=== PATIENT | female | born 1930 | race Caucasian/White ===

== ENCOUNTER 2018-01-04 18:42 | Emergency (ER) | payer OTHER ==
--- OUTSIDE RECORDS SUMMARY | 2018-01-04 18:44 | XMS REPORT ---
:1930 Author Organization eClinicalWorks Care Team Providers Name Role Phone Felicity Hager Provider Role Unavailable Allergies, Adverse Reactions, Alerts Substance Reaction Event Type Sulfa Info Not Available Drug Allergy Levaquin Info Not Available Drug Allergy Fosamax Info Not Available Drug Allergy Erythromycin Info Not Available Drug Allergy Problems Problem Type Condition Code Onset Dates Condition Status Problem Difficulty sleeping G47.9 Active Problem retirement current use of Z79.01 Active anticoagulant Problem Encounter for therapeutic drug Z51.81 Active level monitoring Problem Constipation K59.00 Active Problem DVT (deep venous thrombosis) I82.409 Active Problem Calculus of kidney with calculus of N20.2 Active ureter Problem History of TIA (transient ischemic Z86.73 Active attack) Problem Memory loss R41.3 Active Problem Transient ischemic attack G45.9 Active Problem Chronic UTI N39.0 Active Assessment Urinary tract infection, site not N39.0 Active specified Problem Hypertension, unspecified type I10 Active Assessment Hematuria, unspecified R31.9 Active Problem Chronic constipation K59.09 Active Problem Depression, unspecified depression F32.9 Active type Problem Deep vein thrombosis (DVT) of left I82.402 Active lower extremity, unspecified chronicity, unspecified vein Problem Hyperlipidemia, unspecified E78.5 Active hyperlipidemia type Problem Prediabetes R73.03 Active Problem Diverticulosis large intestine w/o K57.31 Active perforation or abscess w/bleeding Medications Medication Code Code Instructions Start End Status Dosage System Date Date Citalopram [facility] 15148641603 10 MG Orally Active 1 tablet Hydrobromide Once a day Imodium A-D ND 53939321986 2 MG Orally Active 1 tablet as Four times a needed day Nystatin [facility] 63663278824 001064 UNIT/GM Active 1 application Externally to affected Twice a day area Nexabiotic [facility] 60477192246 - Orally Active not defined Diltiazem HCl ND 26748928342 120 MG Orally Active 1 capsule ER Once a day Xarelto [facility] 89217429706 20 MG Active TAKE 1 TABLET BY MOUTH EVERY EVENING Ultram [facility] 91270217317 50 MG Orally Active 1 tablet as every 6 hrs needed Losartan [facility] 53550054136 50 MG Orally Active 1 tablet Potassium Once a day Restasis [facility] 99907513948 0.05 % Active 1 drop into Ophthalmic affected eye Twice a day Fenofibrate [facility] 95063905186 145 MG Orally Active 1 tablet with Once a day food Prilosec [facility] 75304380487 20 MG Orally Active 1 capsule Once a day Colestid [facility] 70429714572 1 GM Orally Active 2 tablets Once a day Macrobid [facility] 67645467805 100 mg Orally December Active 1 capsule every 12 hrs , with food 2017 2017 MiraLax [facility] 20569247628 - Orally Once a Active 1 packet day mixed with 8 ounces of fluid Combigan [facility] 36961898429 0.2-0.5 % Active 1 drop into Ophthalmic affected eye Twice a day Celexa [facility] 38676207295 20 MG Orally Active 1 tablet Once a day Gabapentin [facility] 41750233339 300 MG Orally Active 1 capsule in Three times a am 1 capsule day at noon and 2 capsules at bedtime Linzess [facility] 75597203817 145 MCG Orally Active 1 capsule Once a day Latanoprost [facility] 54615265769 0.005 % Active 1 drop into Ophthalmic Once affected eye a day in the evening Colace [facility] 44682501505 100 MG Active 1 CAPSULE ORALLY UP TO 3X PER DAY Results Name Result Date Reference Range Unit Abnormality Flag PVR ----PVR 0 [id number] Summary Purpose eClinicalWorks Submission
[2018-01-04 19:42] LABS: Absolute Lymphocytes (CBC) 0.7 K/uL (0.7-4.9); Absolute Monocytes 0.8 K/uL (0.1-1.3); Absolute Neutrophil 5.1 K/uL (1.8-8.0); Basophils % 0.4 % (0-1.3); Eosinophils % 8.3 % (0-4.4); Hematocrit 37.3 % (36.0-45.0); Lymphocytes % 10.1 % (15.3-44.8); MCV 95.9 fL (80-100); MPV 8.2 fL (7.6-11.3); Monocytes % 10.8 % (3.3-12.3); RBC Red Blood Cell Count 3.88 M/uL (3.86-4.86)
[2018-01-04 19:48] LABS: Potassium 3.8 mEq/L (3.6-5.0)
[2018-01-04] MEDS ORDERED: ACETAMINOPHEN 325 MG TABLET ONE (19:54)
[2018-01-04] MEDS ORDERED: DOXYCYCLINE 100 MG CAP PO ONE (19:54)
[2018-01-04] MEDS ORDERED: CEFTRIAXONE/SWI 1gm 1 GM/10 ML SYR ONE (19:55)
[2018-01-04 20:01] LABS: Albumin 3.6 g/dL (3.2-5.5); Bilirubin Total 0.8 mg/dL (0.3-1.2); Protein, Total 6.6 g/dL (6.0-8.3)
--- NOTE | 2018-01-04 20:34 | EDPHYS ---
Physician Documentation [facility] Name: Adamaris Beaver Age: 87 yrs Sex: Female : 1930 Arrival Date: 01/04/2018 Time: 18:44 Bed 6 Private MD: Genia Chaudhary ED Physician Berlin Bright HPI: 01/04 18:57 This 87 yrs old Female presents to ER via Wheelchair with complaints of Leg rh1 Pain. 18:57 The patient presents with an abrasion, pain, erythema. The complaints affect the medial rh1 aspect of right calf and right ankle. Context: The problem was sustained at home, resulted from scratch by dog, the patient can fully bear weight, the patient is able to ambulate, Problem is a result from a previous injury: No. Onset: The symptoms/episode began/occurred 1 week(s) ago, and became worse 2 day(s) ago. Modifying factors: The symptoms are alleviated by nothing. the symptoms are aggravated by nothing. Associated signs and symptoms: Pertinent positives: warmth, Pertinent negatives calf tenderness, fever, numbness, swelling, tingling, vomiting, weakness. Treatment prior to arrival includes: no previous treatment. Severity of symptoms: At their worst the symptoms were moderate, in the emergency department the symptoms are unchanged. The patient has not experienced similar symptoms in the past. The patient has been recently seen at an urgent care, today, for similar complaints, and was sent to the [facility] Emergency Department for further evaluation. PT. reports she was scratched by a dog approx. 1 week ago at right medial lower leg, and approx. 1 cm abrasion had been healing well until 2 days ago. She began with redness and increased tenderness at site. Denies any fever, vomiting, swelling. She is currently being treated for a UTI, received injection of gentamycin in PCP office, and taking macrobid now.. Historical: - Allergies: 18:50 Bactrim; la1 18:50 Demerol; la1 18:50 Erythromycin; la1 18:50 Fosamax; la1 18:50 Levaquin; la1 - Home Meds: 19:44 Centrum Silver Women Oral daily [Active]; citalopram 20 mg tab 1 tab once daily tl2 [Active]; Colace Oral [Active]; Colestid Oral 2 times per day [Active]; diltiazem HCl 120 mg Oral cpER 1 cap once daily [Active]; fenofibrate 145 Oral once daily [Active]; gabapentin 300 mg Oral cap four times a day [Active]; Linzess 145 mcg Oral cap 1 cap once daily [Active]; losartan 50 mg Oral tab 1 tab once daily [Active]; Ocuvel Oral daily [Active]; omeprazole 20 mg Oral cpDR 1 cap once daily [Active]; tramadol 200 mg Oral Tb24 1 tab once daily [Active]; Xarelto 20 mg Oral tab 1 tab once daily [Active]; - PMHx: 18:50 Depression; Diverticulitis; Gastric Reflux; High Cholesterol; Hypertension; Kidney la1 stones; neuropathy; TIA; - Immunization history:: Adult Immunizations up to date. - Social history:: Smoking status: Patient/guardian denies using tobacco. ROS: 18:57 Constitutional: Negative for fever, chills rh1 18:57 Cardiovascular: Negative for chest pain, palpitations. 18:57 Respiratory: Negative for shortness of breath. 18:57 Abdomen/GI: Negative for abdominal pain, nausea and vomiting. 18:57 Skin: Positive for abrasion(s), cellulitis. 18:57 Neuro: Negative for altered mental status, dizziness, headache, numbness, tingling, weakness. 18:57 All other systems are negative. 18:57 MS/extremity: Positive for erythema, pain, tenderness, Negative for decreased range of rh1 motion, swelling. 18:57 Back: Negative for decreased range of motion, pain at rest, pain with movement, rh1 radiated pain. 18:57 : Negative for urinary symptoms, small amounts. Exam: 18:57 Constitutional: This is a well developed, well nourished patient who is awake, alert, rh1 and in no acute distress. Head/Face: Normocephalic, atraumatic. Neck: Trachea midline, and no cervical lymphadenopathy. Supple, full range of motion without nuchal rigidity. No Meningismus. Cardiovascular: Regular rate and rhythm with a normal S1 and S2. No gallops, murmurs, or rubs. No JVD. No pulse deficits. Respiratory: Lungs have equal breath sounds bilaterally, clear to auscultation. No rales, rhonchi or wheezes noted. No increased work of breathing. Abdomen/GI: Soft, non-tender, with normal bowel sounds. No distension. No guarding or rebound. No evidence of tenderness throughout. Back: No spinal tenderness. No costovertebral tenderness. Full range of motion. 18:57 Musculoskeletal/extremity: Calves: are non-tender, have equal circumference. 18:57 Skin: abscess, not appreciated, cellulitis, that is mild, well demarcated, on the right ankle and medial aspect of right calf, approx. 2 - 3 cm surrounding more medial/inferior aspect of abrasion, approx. 1 cm at more superior/lateral abrasion; patchy erythema at anterior lower leg, adjacent to wound; negative Nikolsky sign, induration, is not appreciated, injury, abrasion(s), very small abrasion noted, 1 cm(s), of the medial aspect of right calf. 18:57 Neuro: Orientation: is normal, to person, place \T\ time. Mentation: is normal, lucid, able to follow commands, Motor: is normal, moves all fours, strength is 5/5 in all extremities, Sensation: is normal, no obvious gross deficits, numbness, is not appreciated, tingling, is not appreciated, Gait: is steady, at a normal pace, without difficulty. Vital Signs: 18:50 BP 140 / 68; Pulse 70; Resp 16; Temp 98.4(TE); Pulse Ox 97% on R/A; Weight 72.57 kg la1 (R); Height 5 ft. 4 in. (162.56 cm); 19:16 BP 151 / 75; Pulse 71; Resp 20; Pulse Ox 94% on R/A; tl2 20:18 BP 145 / 67; Pulse 71; Resp 18; Pulse Ox 93% on R/A; tl2 20:56 BP 145 / 75; Pulse 71; Resp 18; Pulse Ox 92% on R/A; tl2 18:50 Body Mass Index 27.46 (72.57 kg, 162.56 cm) la1 MDM: 18:57 Patient medically screened. rh1 20:34 Data reviewed: vital signs, nurses notes, lab test result(s), and as a result, I will rh1 discharge patient. Data interpreted: Pulse oximetry: on room air is 93 %. Interpretation: acceptable. Counseling: I had a detailed discussion with the patient and/or guardian regarding: the historical points, exam findings, and any diagnostic results supporting the discharge/admit diagnosis, lab results, the need for outpatient follow up, a family practitioner, to return to the emergency department if symptoms worsen or persist or if there are any questions or concerns that arise at home. 01/04 19:07 Order name: CBC with Diff 1 01/04 19:07 Order name: CMP rh1 01/04 19:07 Order name: Lactate rh 01/04 19:07 Order name: Procalcitonin [facility] 01/04 19:49 Order name: CBC with Automated Diff; Complete Time: 19:56 EDMS 01/04 19:49 Order name: Comprehensive Metabolic Panel; Complete Time: 20:12 EDMS 01/04 19:17 Order name: IV Start; Complete Time: 19:23 1 01/04 20:03 Order name: Lactate; Complete Time: 20:12 EDMS 01/04 20:29 Order name: Procalcitonin; Complete Time: 20:31 EDMS Administered Medications: 19:42 Drug: Tylenol 650 mg Route: PO; tl2 21:10 Follow up: Response: No adverse reaction tl2 19:42 Drug: Rocephin - (cefTRIAXone) 1 grams Route: IVPB; Infused Over: 30 mins; Site: right tl2 antecubital; 21:10 Follow up: IV Status: Completed infusion tl2 19:42 Drug: Doxycycline 100 mg Route: PO; tl2 21:10 Follow up: Response: No adverse reaction tl2 Disposition: 01/04/18 20:34 Discharged to Home. Impression: Cellulitis of right lower limb, Abrasion, right lower leg. - Condition is Stable. - Discharge Instructions: Abrasion, Cellulitis. - Prescriptions for Keflex 500 mg Oral Capsule - take 1 capsule by ORAL route every 12 hours for 10 days; 20 capsule. Doxycycline Hyclate 100 mg Oral Tablet - take 1 tablet by ORAL route every 12 hours; 20 tablet. - Medication Reconciliation Form, Thank You Letter, Antibiotic Education, Prescription Opioid Use form. - Follow up: Genia Chaudhary; When: 1 - 2 days; Reason: Recheck today's complaints, Continuance of care, Re-evaluation by your physician. Follow up: Emergency Department; When: As needed; Reason: Fever > 102 F, If symptoms return, Trouble breathing, Worsening of condition. - Problem is new. - Symptoms have improved. Addendum: 01/08/2018 14:33 Co-signature as Attending Physician, Berlin Bright MD. r n Signatures: Dispatcher [employer] EDBerlin Johns MD MD rn Attema, Nasim RN RN la1 Norma Plascencia, CANDY ATTENDANT CANDY ATTENDANT rh1 Kelly Valladares RN RN tl2 Corrections: (The following items were deleted from the chart) 01/04 19:33 18:57 The complaints affect the medial aspect of right calf and right ankle, rh1 rh1 19:34 18:57 PT. reports she was scratched by a dog approx. 1 week ago at right medial lower rh1 leg, and approx. 1 cm abrasion had been healing well until 2 days ago. She began with redness and increased tenderness at site. Denies any fever, vomiting, swelling.. rh1 19:34 18:57 Skin: abscess, not appreciated, cellulitis, that is mild, well demarcated, on the rh1 right ankle and medial aspect of right calf, approx. 2 - 3 cm surrounding more medial/inferior aspect of abrasion, approx. 1 cm at more superior/lateral abrasion; patchy erythema at anterior lower leg, adjacent to wound, induration, is not appreciated, injury, abrasion(s), very small abrasion noted, 1 cm(s), of the medial aspect of right calf, rh1 19:35 18:57 Abdomen/GI: Negative for nausea and vomiting, rh1 rh1 19:35 18:57 MS/extremity: Positive for erythema, pain, tenderness, Negative for decreased rh1 range of motion, swelling, rh1
--- NOTE | 2018-01-04 20:34 | ER ---
Nurse's Notes [facility] Name: Adamaris Beaver Age: 87 yrs Sex: Female : 1930 Arrival Date: 01/04/2018 Time: 18:44 Bed 6 Private MD: Genia Chaudhary Diagnosis: Cellulitis of right lower limb;Abrasion, right lower leg Presentation: 01/04 18:49 Presenting complaint: Patient states: I have an area on infection on my right lower la1 leg. My doctor told me I may need IV abx. Transition of care: patient was not received from another setting of care. Onset of symptoms was January 04, 2018. Care prior to arrival: None. 18:49 Method Of Arrival: Wheelchair la1 18:49 Acuity: VINI 3 la1 Historical: - Allergies: 18:50 Bactrim; la1 18:50 Demerol; la1 18:50 Erythromycin; la1 18:50 Fosamax; la1 18:50 Levaquin; la1 - Home Meds: 19:44 Centrum Silver Women Oral daily [Active]; citalopram 20 mg tab 1 tab once daily tl2 [Active]; Colace Oral [Active]; Colestid Oral 2 times per day [Active]; diltiazem HCl 120 mg Oral cpER 1 cap once daily [Active]; fenofibrate 145 Oral once daily [Active]; gabapentin 300 mg Oral cap four times a day [Active]; Linzess 145 mcg Oral cap 1 cap once daily [Active]; losartan 50 mg Oral tab 1 tab once daily [Active]; Ocuvel Oral daily [Active]; omeprazole 20 mg Oral cpDR 1 cap once daily [Active]; tramadol 200 mg Oral Tb24 1 tab once daily [Active]; Xarelto 20 mg Oral tab 1 tab once daily [Active]; - PMHx: 18:50 Depression; Diverticulitis; Gastric Reflux; High Cholesterol; Hypertension; Kidney la1 stones; neuropathy; TIA; - Immunization history:: Adult Immunizations up to date. - Social history:: Smoking status: Patient/guardian denies using tobacco. Screenin:16 Abuse screen: Denies threats or abuse. Nutritional screening: No deficits noted. tl2 Tuberculosis screening: No symptoms or risk factors identified. Fall Risk Fall in past 12 months (25 points). IV access (20 points). Assessment: 19:16 General: Appears in no apparent distress. comfortable, Behavior is calm, cooperative, tl2 appropriate for age. Pain: Complains of pain in right ankle. Neuro: Level of Consciousness is awake, alert, obeys commands, Oriented to person, place, time, situation. Cardiovascular: Denies chest pain. Respiratory: Airway is patent Respiratory effort is even, unlabored, Respiratory pattern is regular, symmetrical. GI: No signs and/or symptoms were reported involving the gastrointestinal system. : No signs and/or symptoms were reported regarding the genitourinary system. Denies burning with urination. Derm: Wound noted anterior aspect of right ankle Wound is scabbed, not draining. area of redness around wound. 20:19 Reassessment: Patient appears in no apparent distress at this time. Patient and/or tl2 family updated on plan of care and expected duration. Pain level reassessed. Patient is alert, oriented x 3, equal unlabored respirations, skin warm/dry/pink. 20:56 Reassessment: Patient appears in no apparent distress at this time. Patient and/or tl2 family updated on plan of care and expected duration. Pain level reassessed. Patient is alert, oriented x 3, equal unlabored respirations, skin warm/dry/pink. Pt and family verbalized understanding of discharge instructions, need for follow up, prescription usage and wound care. Vital Signs: 18:50 BP 140 / 68; Pulse 70; Resp 16; Temp 98.4(TE); Pulse Ox 97% on R/A; Weight 72.57 kg la1 (R); Height 5 ft. 4 in. (162.56 cm); 19:16 BP 151 / 75; Pulse 71; Resp 20; Pulse Ox 94% on R/A; tl2 20:18 BP 145 / 67; Pulse 71; Resp 18; Pulse Ox 93% on R/A; tl2 20:56 BP 145 / 75; Pulse 71; Resp 18; Pulse Ox 92% on R/A; tl2 18:50 Body Mass Index 27.46 (72.57 kg, 162.56 cm) la1 ED Course: 18:44 Patient arrived in ED. as 18:45 Genia Chaudhary MD is Private Physician. as 18:50 Triage completed. la1 18:51 Arm band placed on left wrist. la1 18:55 Norma Plascencia NP is PHCP. rh1 18:55 Berlin Bright MD is Attending Physician. rh1 19:16 Kelly Valladares, BRITT is Primary Nurse. tl2 19:16 Patient has correct armband on for positive identification. Bed in low position. Call tl2 light in reach. Side rails up X2. Adult w/ patient. 19:16 Inserted saline lock: 22 gauge in right antecubital area, using aseptic technique. tl2 Blood collected. 19:29 Procalcitonin Sent. tl2 19:29 Lactate Sent. tl2 19:30 CMP Sent. tl2 19:30 CBC with Diff Sent. tl2 20:34 Genia Chaudhary MD is Referral Physician. rh1 20:56 No provider procedures requiring assistance completed. IV discontinued, intact, tl2 bleeding controlled, No redness/swelling at site. Pressure dressing applied. Administered Medications: 19:42 Drug: Tylenol 650 mg Route: PO; tl2 21:10 Follow up: Response: No adverse reaction tl2 19:42 Drug: Rocephin - (cefTRIAXone) 1 grams Route: IVPB; Infused Over: 30 mins; Site: right tl2 antecubital; 21:10 Follow up: IV Status: Completed infusion tl2 19:42 Drug: Doxycycline 100 mg Route: PO; tl2 21:10 Follow up: Response: No adverse reaction tl2 Outcome: 20:34 Discharge ordered by . rh1 20:56 Discharged to home via wheelchair, with family. tl2 20:56 Condition: stable 20:56 Discharge instructions given to patient, family, Instructed on discharge instructions, follow up and referral plans. medication usage, wound care, Demonstrated understanding of instructions, follow-up care, medications, wound care. 21:11 Patient left the ED. tl2 Signatures: Heike Humphrey Lee, RN RN la1 Norma Plascencia NP E [employer] rh1 Kelly Valladares, BRITT RN tl2
[2018-01-04 21:17] VITALS: TEMP 98.4
[2018-01-04 21:20] VITALS: BP 145/75; O2SAT 92
== END 2018-01-04 21:11 | disposition home or self-care (01) ==
LOC: ER 18:42
DX: L03.115 Cellulitis of right lower limb (principal); S80.811A Abrasion, right lower leg, initial encounter; X58.XXXA Exposure to other specified factors, initial encounter; Y93.89 Activity, other specified; Y92.009 Unspecified place in unspecified non-institutional (private) residence as the place of occurrence of the external cause; Z88.3 Allergy status to other anti-infective agents; Z88.5 Allergy status to narcotic agent; Z88.8 Allergy status to other drugs, medicaments and biological substances; I10 Essential (primary) hypertension; E78.00 Pure hypercholesterolemia, unspecified; F32.9 Major depressive disorder, single episode, unspecified
CPT/HCPCS: 36415; 80053; 83605; 84145; 85025; 96365; 99284; J0696

== ENCOUNTER 2019-01-18 07:33 | Emergency (ER) | payer OTHER ==
--- OUTSIDE RECORDS SUMMARY | 2019-01-18 07:35 | XMS REPORT ---
:1930 Author Organization eClinicalWorks Care Team Providers Name Role Phone MadanFelicity cintron Provider Role Unavailable Allergies No Known Allergies Problems Problem Type Condition Code Onset Dates Condition Status Problem Difficulty sleeping G47.9 Active Problem director long term care current use of Z79.01 Active anticoagulant Problem Encounter for therapeutic drug Z51.81 Active level monitoring Problem Constipation K59.00 Active Problem DVT (deep venous thrombosis) I82.409 Active Problem Calculus of kidney with calculus of N20.2 Active ureter Problem History of TIA (transient ischemic Z86.73 Active attack) Problem Memory loss R41.3 Active Problem Transient ischemic attack G45.9 Active Problem Chronic UTI N39.0 Active Problem Hypertension, unspecified type I10 Active Problem Chronic constipation K59.09 Active Problem Depression, unspecified depression F32.9 Active type Problem Deep vein thrombosis (DVT) of left I82.402 Active lower extremity, unspecified chronicity, unspecified vein Problem Hyperlipidemia, unspecified E78.5 Active hyperlipidemia type Problem Prediabetes R73.03 Active Problem Diverticulosis large intestine w/o K57.31 Active perforation or abscess w/bleeding Medications No Known Medications Results No Known Results Summary Purpose eClinicalWorks Submission
--- OUTSIDE RECORDS SUMMARY | 2019-01-18 07:35 | XMS REPORT ---
[...] Status Problem Difficulty sleeping G47.9 Active Problem [facility] current use of Z79.01 Active anticoagulant Problem [...] End Status Dosage System Date Date Citalopram [facility] 79727882983 10 MG Orally Active 1 tablet Hydrobromide Once a day Imodium A-D ND 29110512871 2 MG Orally Active 1 tablet as Four times a needed day Nystatin [facility] 77848166338 109500 UNIT/GM Active 1 application Externally to affected Twice a day area Nexabiotic [facility] 11995808498 - Orally Active not defined Diltiazem HCl ND 33221141921 120 MG Orally Active 1 capsule ER Once a day Xarelto [facility] 34030110221 20 MG Active TAKE 1 TABLET BY MOUTH EVERY EVENING Ultram [facility] 92444557520 50 MG Orally Active 1 tablet as every 6 hrs needed Losartan [facility] 10710769470 50 MG Orally Active 1 tablet Potassium Once a day Restasis [facility] 99958191223 0.05 % Active 1 drop into Ophthalmic affected eye Twice a day Fenofibrate [facility] 81019771486 145 MG Orally Active 1 tablet with Once a day food Prilosec [facility] 42277523408 20 MG Orally Active 1 capsule Once a day Colestid [facility] 94897623733 1 GM Orally Active 2 tablets Once a day Macrobid [facility] 43642716917 100 mg Orally December Active 1 capsule every 12 hrs , with food 2017 2017 MiraLax [facility] 57278267045 - Orally Once a Active 1 packet day mixed with 8 ounces of fluid Combigan [facility] 25108600586 0.2-0.5 % Active 1 drop into Ophthalmic affected eye Twice a day Celexa [facility] 17802468758 20 MG Orally Active 1 tablet Once a day Gabapentin [facility] 08870191955 300 MG Orally Active 1 capsule in Three times a am 1 capsule day at noon and 2 capsules at bedtime Linzess [facility] 83381920888 145 MCG Orally Active 1 capsule Once a day Latanoprost [facility] 69561067658 0.005 % Active 1 drop into Ophthalmic Once affected eye a day in the evening Colace [facility] 30046086389 100 MG Active 1 CAPSULE ORALLY UP TO 3X PER DAY Results Name Result Date Reference Range Unit Abnormality Flag PVR ----PVR 0 [id number] Summary Purpose eClinicalWorks Submission
--- OUTSIDE RECORDS SUMMARY | 2019-01-18 07:35 | XMS REPORT ---
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 Problem Encounter for therapeutic drug Z51.81 Active level monitoring Problem Constipation K59.00 Active Problem DVT (deep venous thrombosis) I82.409 Active Problem Calculus of kidney with calculus of N20.2 Active ureter Problem History of TIA (transient ischemic Z86.73 Active attack) Problem Memory loss R41.3 Active Problem Transient ischemic attack G45.9 Active Problem Chronic UTI N39.0 Active Assessment Cellulitis of right lower leg L03.115 Active Problem Hypertension, unspecified type I10 Active [...] Start End Status Dosage System Date Date Centrum Silver [facility] [address]-25 Active not defined Ocuvite ND 0 Active not defined Xarelto [facility] 49460436219 20 MG Active TAKE 1 TABLET BY MOUTH EVERY EVENING Colace [facility] 86478906730 100 MG Active 1 CAPSULE ORALLY UP TO 3X PER DAY Losartan ND 90177210058 50 MG Orally Active 1 tablet Potassium Once a day Prilosec [facility] 67791060904 20 MG Orally Active 1 capsule Once a day Linzess [facility] 98501429159 145 MCG Orally Active 1 capsule Once a day MiraLax [facility] 76273314567 - Orally Once Active 1 packet a day mixed with 8 ounces of fluid OcuSoft Eye [facility] [address]-12 Active not defined Wash Milk of [facility] [address]-60 Active not defined Magnesia Celexa [facility] 70077256892 20 MG Orally Active 1 tablet Once a day Fenofibrate [facility] 16736398604 145 MG Orally Active 1 tablet with Once a day food Nystatin [facility] 70411129830 469623 UNIT/GM Active 1 application Externally to affected Twice a day area Latanoprost [facility] 67594460425 0.005 % Active 1 drop into Ophthalmic affected eye Once a day in the evening Restasis [facility] 97555218429 0.05 % Active 1 drop into Ophthalmic affected eye Twice a day Ultram [facility] 25795040160 50 MG Orally Active 1 tablet as every 6 hrs needed Colestid [facility] 19285604216 1 GM Orally Active 2 tablets Once a day Gabapentin [facility] 67049761068 300 MG Orally Active 1 capsule in Three times a am 1 capsule day at noon and 2 capsules at bedtime Combigan [facility] 98087973545 0.2-0.5 % Active 1 drop into Ophthalmic affected eye Twice a day Nexabiotic [facility] 06782308305 - Orally Active not defined Diltiazem HCl [facility] 38066956547 120 MG Orally Active 1 capsule ER Once a day Macrobid [facility] 40440530229 100 mg Orally December Active 1 capsule every 12 hrs , with food 2017 2017 Citalopram [facility] 25702485595 10 MG Orally Active 1 tablet Hydrobromide Once a day Imodium A-D [facility] 62664173479 2 MG Orally Active 1 tablet as Four times a needed day Results No Known Results Summary Purpose eClinicalWorks Submission
--- OUTSIDE RECORDS SUMMARY | 2019-01-18 07:35 | XMS REPORT ---
:1930 Author Organization [employer] Care Team Providers Name Role Phone Genia Chaudhary Provider Role Unavailable Allergies No Known Allergies Problems Problem Type Condition Code Onset Dates Condition Status Problem Difficulty sleeping G47.9 Active Problem USP current use of Z79.01 Active anticoagulant Problem [...]
--- OUTSIDE RECORDS SUMMARY | 2019-01-18 07:35 | XMS REPORT ---
:1930 Author Organization [employer] Care Team Providers Name Role Phone Madan Felicity Provider Role Unavailable Allergies, Adverse Reactions, Alerts Substance Reaction Event Type Sulfa Info Not Available Drug Allergy Levaquin Info Not Available Drug Allergy Fosamax Info Not Available Drug Allergy Erythromycin Info Not Available Drug Allergy Problems Problem Type Condition Code Onset Dates Condition Status Problem Difficulty sleeping G47.9 Active Problem half-way current use of Z79.01 Active anticoagulant Problem [...] Problem Hypertension, unspecified type I10 Active Assessment Incomplete bladder emptying R33.9 Active Problem Chronic constipation K59.09 Active Problem Depression, unspecified depression F32.9 Active type Problem Deep vein thrombosis (DVT) of left I82.402 Active lower extremity, unspecified chronicity, unspecified vein Problem Hyperlipidemia, unspecified E78.5 Active hyperlipidemia type Problem Prediabetes R73.03 Active Problem Diverticulosis large intestine w/o K57.31 Active perforation or abscess w/bleeding Medications Medication Code Code Instructions Start End Status Dosage System Date Date Prilosec [facility] 31481668682 20 MG Orally Active 1 capsule Once a day Diltiazem HCl ND 70252089354 120 MG Orally Active 1 capsule ER Once a day Fenofibrate ND 07953738923 145 MG Orally Active 1 tablet with Once a day food Citalopram ND 81130865568 10 MG Orally Active 1 tablet Hydrobromide Once a day Linzess ND 98350004300 145 MCG Orally Active 1 capsule Once a day Latanoprost ND 89335613867 0.005 % Active 1 drop into Ophthalmic Once affected eye a day in the evening Colestid [facility] 55260982307 1 GM Orally Active 2 tablets Once a day Celexa [facility] 47786550833 20 MG Orally Active 1 tablet Once a day Imodium A-D [facility] 70919631647 2 MG Orally Active 1 tablet as Four times a needed day Colace [facility] 84523319190 100 MG Active 1 CAPSULE ORALLY UP TO 3X PER DAY Xarelto [facility] 61213468898 20 MG Active TAKE 1 TABLET BY MOUTH EVERY EVENING Nexabiotic [facility] 12792319474 - Orally Active not defined Nystatin [facility] 80586232720 846881 UNIT/GM Active 1 application Externally to affected Twice a day area Gabapentin [facility] 47418394595 300 MG Orally Active 1 capsule in Three times a am 1 capsule day at noon and 2 capsules at bedtime Losartan [facility] 53150968509 50 MG Orally Active 1 tablet Potassium Once a day Combigan [facility] 23593039942 0.2-0.5 % Active 1 drop into Ophthalmic affected eye Twice a day Macrobid [facility] 77805418250 100 mg Orally December Active 1 capsule every 12 hrs , with food 2017 2017 Ultram [facility] 70350190520 50 MG Orally Active 1 tablet as every 6 hrs needed MiraLax [facility] 87347035733 - Orally Once a Active 1 packet day mixed with 8 ounces of fluid Restasis ND 97304517570 0.05 % Active 1 drop into Ophthalmic affected eye Twice a day Results Name Result Date Reference Range Unit Abnormality Flag URINALYSIS AUTO W/O SCOPE (58593) ----PARESH n/a 20180103 ----NIT n/a 20180103 ----PROTEIN n/a 20180103 ----pH n/a 20180103 ----GLUCOSE n/a 20180103 ----KETONES n/a 20180103 ----SPECIFIC GRAVITY n/a 20180103 ----BLO n/a 20180103 PVR ----PVR 20180103 Summary Purpose eClinicalWorks Submission
--- OUTSIDE RECORDS SUMMARY | 2019-01-18 07:36 | XMS REPORT ---
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 Problem [...] Start End Status Dosage System Date Date Restasis [facility] 40268942615 0.05 % Active 1 drop into Ophthalmic affected eye Twice a day Celexa [facility] 33281039193 20 MG Orally Active 1 tablet Once a day Centrum Silver [facility] [address]-89 Active not defined Colestid [facility] 09996162182 1 GM Orally Active 1 tablet Twice daily Xarelto [facility] 46375621902 20 MG Active TAKE 1 TABLET BY MOUTH EVERY EVENING Combigan [facility] 79341951181 0.2-0.5 % Active 1 drop into Ophthalmic affected eye Twice a day Losartan ND 09915475600 50 MG Orally Active 1 tablet Potassium Once a day Nexabiotic ND 94711834026 - Orally Active not defined Ocuvite NDC 0 Active not defined Ultram [facility] 85828866709 50 MG Orally Active 1 tablet as every 6 hrs needed Milk of [facility] [address]-23 Active not defined Magnesia MiraLax [facility] 64347729240 - Orally Once Active 1 packet a day mixed with 8 ounces of fluid Imodium A-D [facility] 88665272859 2 MG Orally Active 1 tablet as Four times a needed day Diltiazem HCl [facility] 71614086745 120 MG Orally Active 1 capsule ER Once a day Prilosec [facility] 00835579016 20 MG Orally Active 1 capsule Once a day Nystatin [facility] 41415159849 784917 UNIT/GM Active 1 application Externally to affected Twice a day area Linzess [facility] 98438300340 145 MCG Orally Active 1 capsule Once a day Gabapentin [facility] 82331666675 300 MG Orally Active 1 capsule in Three times a am 1 capsule day at noon and 2 capsules at bedtime Citalopram [facility] 75325312059 10 MG Orally Active 1 tablet Hydrobromide Once a day OcuSoft Eye [facility] [address]-31 Active not defined Wash Latanoprost [facility] 28675270299 0.005 % Active 1 drop into Ophthalmic affected eye Once a day in the evening Colace [facility] 70874163529 100 MG Active 1 CAPSULE ORALLY UP TO 3X PER DAY Fenofibrate [facility] 79398808558 145 MG Orally Active 1 tablet with Once a day food Results No Known Results Summary Purpose eClinicalWorks Submission
--- OUTSIDE RECORDS SUMMARY | 2019-01-18 07:36 | XMS REPORT ---
:1930 [facility] Team Providers Name Role Phone Genia Chaudhary Provider Role Unavailable Allergies, Adverse Reactions, Alerts Substance Reaction Event Type Levaquin Info Not Available Drug Allergy Fosamax Info Not Available Drug Allergy Erythromycin Info Not Available Drug Allergy Problems Problem Type Condition Code Onset Dates Condition Status Assessment Depression, unspecified depression F32.9 Active type Problem Hyperlipidemia, unspecified E78.5 Active hyperlipidemia type Assessment History of TIA (transient ischemic Z86.73 Active attack) Problem Diverticulosis large intestine w/o K57.31 Active perforation or abscess w/bleeding Assessment Deep vein thrombosis (DVT) of left I82.402 Active lower extremity, unspecified chronicity, unspecified vein Problem Difficulty sleeping G47.9 Active 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 Problem Encounter for therapeutic drug Z51.81 Active level monitoring Problem Constipation K59.00 Active Problem DVT (deep venous thrombosis) I82.409 Active Assessment Prediabetes R73.03 Active Assessment Chronic constipation K59.09 Active Problem Calculus of kidney with calculus of N20.2 Active ureter Assessment halfway current use of Z79.01 Active anticoagulant Problem History of TIA (transient ischemic Z86.73 Active attack) Problem Memory loss R41.3 Active Problem Transient ischemic attack G45.9 Active Problem Chronic UTI N39.0 Active Problem Hypertension, unspecified type I10 Active Assessment Hyperlipidemia, unspecified E78.5 Active hyperlipidemia type Assessment Hypertension, unspecified type I10 Active Problem Chronic constipation K59.09 Active Problem Depression, unspecified depression F32.9 Active type Problem Deep vein thrombosis (DVT) of left I82.402 Active lower extremity, unspecified chronicity, unspecified vein Problem Prediabetes R73.03 Active Medications Medication Code Code Instructions Start End Status Dosage System Date Date Prilosec [facility] [address]-21 20 mg Orally Active 1 capsule Once a day Celexa [facility] 42086114738 20 mg Orally Active 1 tablet Once a day Colestid [facility] 50549504059 1 GM Orally Active 1 tablet Twice daily Xarelto [facility] 99620452346 20 mg Orally Active 1 tablet Once a day evening Nystatin [facility] 98256040346 956480 UNIT/GM Active 1 application Externally to affected Twice a day area Milk of [facility] [address]-29 Active not defined Magnesia Losartan [facility] 70821236931 50 MG Orally Active 1 tablet Potassium Once a day Citalopram [facility] 74112749943 10 MG Orally Active 1 tablet Hydrobromide Once a day Fenofibrate [facility] 39648623066 145 MG Orally Active 1 tablet with Once a day food Omeprazole [facility] 41473857061 20 mg Orally Sept Active 1 capsule Once a day 2017 Latanoprost [facility] 23500311480 0.005 % Active 1 drop into Ophthalmic affected eye Once a day in the evening Nexabiotic [facility] 70014200117 - Orally Active not defined Omeprazole [facility] 00328918136 20 MG Active TAKE 1 CAPSULE BY MOUTH EVERY DAY. OcuSoft Eye [facility] [address]-55 Active not defined Wash Imodium A-D [facility] 00418081146 2 MG Orally Active 1 tablet as Four times a needed day Gabapentin [facility] 02406725365 300 MG Orally Active 1 capsule in Three times a am 1 capsule day at noon and 2 capsules at bedtime Diltiazem HCl [facility] 22476055902 120 MG Orally Active 1 capsule ER Once a day Colace [facility] 26023673836 100 mg Orally Coleen Active 1 capsule as Three times 04, needed for daily 2018 constipation Linzess [facility] 07513881508 145 MCG Orally Dec Active 1 capsule Once a day 2017 Ultram [facility] 89794077004 50 MG Orally Active 1 tablet as every 6 hrs needed Restasis [facility] 01728761574 0.05 % Active 1 drop into Ophthalmic affected eye Twice a day Centrum Silver [facility] [address]-54 Active not defined MiraLax [facility] 40153614470 - Orally Once Active 1 packet mixed a day with 8 ounces of fluid Combigan [facility] 06906354650 0.2-0.5 % Active 1 drop into Ophthalmic affected eye Twice a day Ocuvite [facility] 0 Active not defined Results No Known Results Summary Purpose eClinicalWorks Submission
--- OUTSIDE RECORDS SUMMARY | 2019-01-18 07:36 | XMS REPORT ---
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 Problem [...] Problem Hypertension, unspecified type I10 Active Assessment Influenza vaccination administered Z23 Active at current visit Problem Chronic constipation K59.09 Active Problem Depression, unspecified depression F32.9 Active type Problem Deep vein thrombosis (DVT) of left I82.402 Active lower extremity, unspecified chronicity, unspecified vein Problem Hyperlipidemia, unspecified E78.5 Active hyperlipidemia type Problem Prediabetes R73.03 Active Problem Diverticulosis large intestine w/o K57.31 Active perforation or abscess w/bleeding Medications Medication Code Code Instructions Start End Status Dosage System Date Date Nexabiotic [facility] 86634894076 - Orally Active not defined MiraLax [facility] 75085768836 - Orally Once Active 1 packet mixed a day with 8 ounces of fluid Prilosec [facility] [address]-92 20 mg Orally Active 1 capsule Once a day Imodium A-D [facility] 98321348861 2 MG Orally Active 1 tablet as Four times a needed day Colestid [facility] 50919481764 1 GM Orally Active 1 tablet Twice daily Linzess [facility] 07604895692 145 MCG Orally Dec Active 1 capsule Once a day 2017 Omeprazole [facility] 88297235604 20 mg Orally Sept Active 1 capsule Once a day 2017 Latanoprost [facility] 23049774734 0.005 % Active 1 drop into Ophthalmic affected eye Once a day in the evening Gabapentin [facility] 79698519341 300 MG Orally Active 1 capsule in Three times a am 1 capsule day at noon and 2 capsules at bedtime Milk of [facility] [address]-73 Active not defined Magnesia Fenofibrate [facility] 47331826177 145 MG Orally Active 1 tablet with Once a day food Diltiazem HCl [facility] 17320330559 120 MG Orally Active 1 capsule ER Once a day Colace [facility] 80624436004 100 mg Orally Coleen Active 1 capsule as Three times 04, needed for daily 2018 constipation Citalopram [facility] 91909999969 10 MG Orally Active 1 tablet Hydrobromide Once a day Restasis [facility] 72059951865 0.05 % Active 1 drop into Ophthalmic affected eye Twice a day Combigan [facility] 50874985935 0.2-0.5 % Active 1 drop into Ophthalmic affected eye Twice a day Xarelto [facility] 05831044731 20 mg Orally Active 1 tablet Once a day evening Celexa [facility] 14479747388 20 mg Orally Active 1 tablet Once a day Ultram [facility] 68566046514 50 MG Orally Active 1 tablet as every 6 hrs needed OcuSoft Eye [facility] [address]-29 Active not defined Wash Nystatin [facility] 14914819675 369213 UNIT/GM Active 1 application Externally to affected Twice a day area Losartan [facility] 39264083220 50 MG Orally Active 1 tablet Potassium Once a day Ocuvite ND 0 Active not defined Centrum Silver [facility] [address]-08 Active not defined Omeprazole [facility] 38017260768 20 MG Active TAKE 1 CAPSULE BY MOUTH EVERY DAY. Results No Known Results Immunizations Vaccine Administration Date FLUZONE HIGH DOSE OVER 65 Jul 04, 2018 Summary Purpose eClinicalWorks Submission
--- OUTSIDE RECORDS SUMMARY | 2019-01-18 07:36 | XMS REPORT ---
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 Problem Encounter for therapeutic drug Z51.81 Active level monitoring Problem Constipation K59.00 Active Assessment Deep vein thrombosis (DVT) of left I82.402 Active lower extremity, unspecified chronicity, unspecified vein Problem DVT (deep venous thrombosis) I82.409 Active Assessment custodial current use of Z79.01 Active anticoagulant Assessment Chronic constipation K59.09 Active Problem Calculus of kidney with calculus of N20.2 Active ureter Problem History of TIA (transient ischemic Z86.73 Active attack) Problem Memory loss R41.3 Active Problem Transient ischemic attack G45.9 Active Problem Chronic UTI N39.0 Active Assessment Hypertension, unspecified type I10 Active Problem Hypertension, unspecified type I10 Active Assessment Hyperlipidemia, unspecified E78.5 Active hyperlipidemia type Assessment Prediabetes R73.03 Active Problem Chronic constipation K59.09 Active Problem Depression, unspecified depression F32.9 Active type Problem Deep vein thrombosis (DVT) of left I82.402 Active lower extremity, unspecified chronicity, unspecified vein Problem Hyperlipidemia, unspecified E78.5 Active hyperlipidemia type Assessment Depression, unspecified depression F32.9 Active type Problem Prediabetes R73.03 Active Problem Diverticulosis large intestine w/o K57.31 Active perforation or abscess w/bleeding Medications Medication Code Code Instructions Start End Status Dosage System Date Date Losartan [facility] 54755593236 50 MG Orally Active 1 tablet Potassium Once a day Imodium A-D [facility] 40077610961 2 MG Orally Active 1 tablet as Four times a needed day Diltiazem HCl [facility] 97579086763 120 MG Orally Active 1 capsule ER Once a day MiraLax [facility] 87970262786 - Orally Once Active 1 packet mixed a day with 8 ounces of fluid Fenofibrate [facility] 49260331009 145 MG Orally Active 1 tablet with Once a day food Nystatin [facility] 90195107146 504818 UNIT/GM Active 1 application Externally to affected Twice a day area Nexabiotic [facility] 24804616785 - Orally Active not defined Xarelto [facility] 32075983805 20 mg Orally Active 1 tablet Once a day evening Ultram [facility] 62533279923 50 MG Orally Active 1 tablet as every 6 hrs needed Milk of [facility] [address]-77 Active not defined Magnesia Colestid [facility] 91988300801 1 GM Orally Active 1 tablet Twice daily OcuSoft Eye [facility] [address]-61 Active not defined Wash Centrum Silver [facility] [address]-22 Active not defined Celexa [facility] 34767417287 20 mg Orally Active 1 tablet Once a day Restasis [facility] 02819765225 0.05 % Active 1 drop into Ophthalmic affected eye Twice a day Citalopram [facility] 91332880637 10 MG Orally Active 1 tablet Hydrobromide Once a day Linzess [facility] 19775888220 145 MCG Orally Dec Active 1 capsule Once a day 2017 Latanoprost [facility] 51529075336 0.005 % Active 1 drop into Ophthalmic affected eye Once a day in the evening Ocuvite [facility] 0 Active not defined Colace [facility] 49980400729 100 mg Orally Dec Active 1 capsule as Three times 04, needed for daily 2018 constipation Gabapentin [facility] 39751801872 300 MG Orally Active 1 capsule in Three times a am 1 capsule day at noon and 2 capsules at bedtime Combigan [facility] 40509781176 0.2-0.5 % Active 1 drop into Ophthalmic affected eye Twice a day Prilosec [facility] [address]-48 20 mg Orally Active 1 capsule Once a day Results No Known Results Summary Purpose eClinicalWorks Submission
--- OUTSIDE RECORDS SUMMARY | 2019-01-18 07:36 | XMS REPORT ---
:1930 Author Organization eClinicalWorks Care Team Providers Name Role Phone MadanGraciecy Provider Role Unavailable Allergies, Adverse Reactions, Alerts [...] Problem Hypertension, unspecified type I10 Active Assessment Recurrent UTI N39.0 Active Problem Chronic constipation K59.09 Active Problem Depression, unspecified depression F32.9 Active type Problem Deep vein thrombosis (DVT) of left I82.402 Active lower extremity, unspecified chronicity, unspecified vein Problem Hyperlipidemia, unspecified E78.5 Active hyperlipidemia type Problem Prediabetes R73.03 Active Problem Diverticulosis large intestine w/o K57.31 Active perforation or abscess w/bleeding Medications Medication Code Code Instructions Start End Status Dosage System Date Date Milk of [facility] [address]-76 Active not defined Magnesia Colestid [facility] 08364115583 1 GM Orally Active 1 tablet Twice daily Diltiazem HCl [facility] 87254772079 120 MG Orally Active 1 capsule ER Once a day Prilosec [facility] [address]-94 20 mg Orally Active 1 capsule Once a day Linzess [facility] 81742287428 145 MCG Orally Dec Active 1 capsule Once a day 2017 Nexabiotic [facility] 04405682811 - Orally Active not defined Combigan [facility] 49298642406 0.2-0.5 % Active 1 drop into Ophthalmic affected eye Twice a day OcuSoft Eye [facility] [address]-47 Active not defined Wash Xarelto ND 02835044690 20 mg Orally Active 1 tablet Once a day evening Centrum Silver [facility] [address]-80 Active not defined Celexa ND 05019237337 20 mg Orally Active 1 tablet Once a day Latanoprost ND 93639646593 0.005 % Active 1 drop into Ophthalmic affected eye Once a day in the evening Nystatin [facility] 43367820633 564930 UNIT/GM Active 1 application Externally to affected Twice a day area Imodium A-D [facility] 55367866358 2 MG Orally Active 1 tablet as Four times a needed day Citalopram ND 75174779427 10 MG Orally Active 1 tablet Hydrobromide Once a day Fenofibrate [facility] 37864977827 145 MG Orally Active 1 tablet with Once a day food Losartan [facility] 45219999596 50 MG Orally Active 1 tablet Potassium Once a day Ultram [facility] 04212925748 50 MG Orally Active 1 tablet as every 6 hrs needed Restasis ND 79938265214 0.05 % Active 1 drop into Ophthalmic affected eye Twice a day Gabapentin ND 28519425066 300 MG Orally Active 1 capsule in Three times a am 1 capsule day at noon and 2 capsules at bedtime Ocuvite ND 0 Active not defined Colace [facility] 10980059917 100 mg Orally Dec Active 1 capsule as Three times 04, needed for daily 2018 constipation MiraLax ND 03654222850 - Orally Once Active 1 packet mixed a day with 8 ounces of fluid Results No Known Results Summary Purpose eClinicalWorks Submission
--- OUTSIDE RECORDS SUMMARY | 2019-01-18 07:37 | XMS REPORT ---
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 Active Problem Transient ischemic attack G45.9 Active Problem Calculus of kidney with calculus of N20.2 Active ureter Problem Constipation K59.00 Active Problem DVT (deep venous thrombosis) I82.409 Active Problem intermediate frame tender current use of Z79.01 Active anticoagulant Problem Memory loss R41.3 Active Problem History of TIA (transient ischemic Z86.73 Active attack) Problem Prediabetes R73.03 Active Problem Chronic constipation K59.09 Active Problem Hypertension, unspecified type I10 Active Problem Depression, unspecified depression F32.9 Active type Problem Deep vein thrombosis (DVT) of left I82.402 Active lower extremity, unspecified chronicity, unspecified vein Problem Hyperlipidemia, unspecified E78.5 Active hyperlipidemia type Medications No Known Medications Results No Known Results Summary Purpose [employer] Submission
--- OUTSIDE RECORDS SUMMARY | 2019-01-18 07:37 | XMS REPORT ---
:1930 [facility] Team Providers Name Role Phone Genia Chaudhary Provider Role Unavailable Allergies, Adverse Reactions, Alerts Substance Reaction Event Type Levaquin Info Not Available Drug Allergy Fosamax Info Not Available Drug Allergy Erythromycin Info Not Available Drug Allergy Problems Problem Type Condition Code Onset Dates Condition Status Assessment Depression, unspecified depression F32.9 Active type Assessment History of TIA (transient ischemic Z86.73 Active attack) Assessment At risk for falls Z91.81 Active Assessment Chronic constipation K59.09 Active Problem Depression, unspecified depression F32.9 Active type Assessment 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 Problem Hyperlipidemia, unspecified E78.5 Active hyperlipidemia type Assessment Deep vein thrombosis (DVT) of left I82.402 Active lower extremity, unspecified chronicity, unspecified vein Problem Diverticulosis large intestine w/o K57.31 Active perforation or abscess w/bleeding Problem Encounter for therapeutic drug Z51.81 Active level monitoring Problem Difficulty sleeping G47.9 Active Problem At risk for falls Z91.81 Active Problem Chronic UTI N39.0 Active Assessment Hypertension, unspecified type I10 Active Assessment Hyperlipidemia, unspecified E78.5 Active hyperlipidemia type Problem 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 Active Assessment Prediabetes R73.03 Active Problem Transient ischemic attack G45.9 Active Problem Calculus of kidney with calculus of N20.2 Active ureter Problem Constipation K59.00 Active Problem DVT (deep venous thrombosis) I82.409 Active Problem 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 Problem Memory loss R41.3 Active Problem History of TIA (transient ischemic Z86.73 Active attack) Problem Prediabetes R73.03 Active Problem Chronic constipation K59.09 Active Problem Hypertension, unspecified type I10 Active Problem Deep vein thrombosis (DVT) of left I82.402 Active lower extremity, unspecified chronicity, unspecified vein Medications Medication Code Code Instructions Start End Status Dosage System Date Date Loratadine [facility] 50467267831 10 MG Orally Sep 19, Active 1 tablet Once a day 2017 Losartan [facility] 08202659493 50 MG Orally Active 1 tablet Potassium Once a day OcuSoft Eye [facility] [address]-19 Active not defined Wash Centrum Silver [facility] [address]-98 Active not defined Omeprazole [facility] 69397685496 20 mg Orally Sept Active 1 capsule Once a day 2017 Combigan [facility] 92660783116 0.2-0.5 % Active 1 drop into Ophthalmic affected eye Twice a day Restasis ND 39882184055 0.05 % Active 1 drop into Ophthalmic affected eye Twice a day Milk of [facility] [address]-71 Active not defined Magnesia Nexabiotic [facility] 71216975419 - Orally Active not defined Xarelto [facility] 34697075645 20 mg Orally Active 1 tablet Once a day evening Prilosec [facility] [address]-00 20 mg Orally Active 1 capsule Once a day Celexa [facility] 91883780657 20 mg Orally Active 1 tablet Once a day MiraLax [facility] 90812988715 - Orally Once Active 1 packet mixed a day with 8 ounces of fluid Ultram [facility] 61193814797 50 MG Orally Active 1 tablet as every 6 hrs needed Fluticasone [facility] 18068350541 50 MCG/ACT Sep 19, Active 1 spray in Propionate Nasally Once a 2018 each nostril day Omeprazole [facility] 81604428573 20 MG Active TAKE 1 CAPSULE BY MOUTH EVERY DAY. Imodium A-D [facility] 95786510551 2 MG Orally Active 1 tablet as Four times a needed day Nystatin [facility] 65643214345 247133 UNIT/GM Active 1 application Externally to affected Twice a day area Ocuvite ND 0 Active not defined Colestid [facility] 35385591424 1 GM Orally Active 1 tablet Twice daily Fenofibrate [facility] 80418916281 145 MG Orally Active 1 tablet with Once a day food Latanoprost [facility] 25688175728 0.005 % Active 1 drop into Ophthalmic affected eye Once a day in the evening Citalopram [facility] 79970289577 10 MG Orally Active 1 tablet Hydrobromide Once a day Diltiazem HCl [facility] 07464661379 120 MG Orally Active 1 capsule ER Once a day Colace [facility] 86882947899 100 mg Orally Cloeen Active 1 capsule as Three times 04, needed for daily 2019 constipation Gabapentin [facility] 81135839089 300 MG Orally Active 1 capsule in Three times a am 1 capsule day at noon and 2 capsules at bedtime Results No Known Results Summary Purpose [employer]ClinicalWorks Submission
--- OUTSIDE RECORDS SUMMARY | 2019-01-18 07:37 | XMS REPORT ---
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
--- OUTSIDE RECORDS SUMMARY | 2019-01-18 07:37 | XMS REPORT ---
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
--- OUTSIDE RECORDS SUMMARY | 2019-01-18 07:37 | XMS REPORT ---
:1930 Author Organization eClinicalWorks Care Team Providers Name Role Phone MadanFelicity cintron Provider Role Unavailable Allergies, Adverse Reactions, Alerts Substance Reaction Event Type Levaquin Info Not Available Drug Allergy Fosamax Info Not Available Drug Allergy Erythromycin Info Not Available Drug Allergy Problems Problem Type Condition Code Onset Dates Condition Status Problem Difficulty sleeping G47.9 Active Problem nursing home current use of Z79.01 Active anticoagulant Problem [...] End Status Dosage System Date Date Citalopram [facility] 85024496115 10 MG Orally Active 1 tablet Hydrobromide Once a day Celexa ND 94398746202 20 mg Orally Active 1 tablet Once a day Colace ND 15168186915 100 mg Orally March Active 1 capsule as Three times 04, needed for daily 2018 constipation Diltiazem HCl ND 64241332022 120 MG Orally Active 1 capsule ER Once a day Restasis ND 98568645781 0.05 % Active 1 drop into Ophthalmic affected eye Twice a day Ocuvite NDC 0 Active not defined Centrum Silver [facility] [address]-44 Active not defined Omeprazole [facility] 55592107784 20 mg Orally Sept Active 1 capsule Once a day 2017 Fenofibrate [facility] 02841166439 145 MG Orally Active 1 tablet with Once a day food MiraLax [facility] 21239252983 - Orally Once Active 1 packet mixed a day with 8 ounces of fluid Nystatin [facility] 68185050824 372312 UNIT/GM Active 1 application Externally to affected Twice a day area Nexabiotic [facility] 09594954404 - Orally Active not defined Milk of [facility] [address]-07 Active not defined Magnesia OcuSoft Eye [facility] [address]-93 Active not defined Wash Linzess [facility] 62127114225 145 MCG Orally Dec Active 1 capsule Once a day 2017 Xarelto [facility] 82175252628 20 mg Orally Active 1 tablet Once a day evening Omeprazole [facility] 38493262251 20 MG Active TAKE 1 CAPSULE BY MOUTH EVERY DAY. Colestid [facility] 28003406287 1 GM Orally Active 1 tablet Twice daily Losartan [facility] 83694443539 50 MG Orally Active 1 tablet Potassium Once a day Imodium A-D [facility] 68123815016 2 MG Orally Active 1 tablet as Four times a needed day Gabapentin [facility] 01590481244 300 MG Orally Active 1 capsule in Three times a am 1 capsule day at noon and 2 capsules at bedtime Latanoprost [facility] 01596776633 0.005 % Active 1 drop into Ophthalmic affected eye Once a day in the evening Ultram [facility] 68450341797 50 MG Orally Active 1 tablet as every 6 hrs needed Prilosec [facility] [address]-56 20 mg Orally Active 1 capsule Once a day Combigan [facility] 30273597491 0.2-0.5 % Active 1 drop into Ophthalmic affected eye Twice a day Results No Known Results Summary Purpose eClinicalWorks Submission
--- OUTSIDE RECORDS SUMMARY | 2019-01-18 07:37 | XMS REPORT ---
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 Problem [...] Hyperlipidemia, unspecified E78.5 Active hyperlipidemia type Medications Medication Code Code Instructions Start End Status Dosage System Date Date Gabapentin [facility] 41989421462 300 MG Orally Active 1 capsule in Three times a am 1 capsule day at noon and 2 capsules at bedtime Prilosec [facility] [address]-45 20 mg Orally Active 1 capsule Once a day Colestid [facility] 28961877421 1 GM Orally Active 1 tablet Twice daily Fenofibrate [facility] 59901512445 145 MG Orally Active 1 tablet with Once a day food Nexabiotic [facility] 74879113544 - Orally Active not defined Milk of [facility] [address]-76 Active not defined Magnesia OcuSoft Eye [facility] [address]-63 Active not defined Wash Citalopram [facility] 28015245666 10 MG Orally Active 1 tablet Hydrobromide Once a day Diltiazem HCl [facility] 41936712856 120 MG Orally Active 1 capsule ER Once a day Restasis ND 05816718483 0.05 % Active 1 drop into Ophthalmic affected eye Twice a day Ocuvite [facility] 0 Active not defined Latanoprost [facility] 43662157293 0.005 % Active 1 drop into Ophthalmic affected eye Once a day in the evening Loratadine [facility] 43739622145 10 MG Orally Sep 19, Active 1 tablet Once a day 2017 Omeprazole [facility] 48701007360 20 MG Active TAKE 1 CAPSULE BY MOUTH EVERY DAY. Celexa [facility] 09719111916 20 mg Orally Active 1 tablet Once a day Omeprazole ND 30639972218 20 mg Orally Sept Active 1 capsule Once a day 2017 Fluticasone [facility] 99104318561 50 MCG/ACT Sep 19, Active 1 spray in Propionate Nasally Once a 2018 each nostril day Colace [facility] 37636929645 100 mg Orally Coleen Active 1 capsule as Three times 04, needed for daily 2018 constipation Xarelto [facility] 82635615150 20 mg Orally Active 1 tablet Once a day evening Imodium A-D [facility] 29517456773 2 MG Orally Active 1 tablet as Four times a needed day Combigan [facility] 72960309372 0.2-0.5 % Active 1 drop into Ophthalmic affected eye Twice a day Losartan [facility] 04931803824 50 MG Orally Active 1 tablet Potassium Once a day Nystatin [facility] 82496422811 051457 UNIT/GM Active 1 application Externally to affected Twice a day area Ultram [facility] 87566106967 50 MG Orally Active 1 tablet as every 6 hrs needed MiraLax [facility] 97671707605 - Orally Once Active 1 packet mixed a day with 8 ounces of fluid Centrum Silver [facility] [address]-82 Active not defined Results No Known Results Summary Purpose [employer] Submission
--- OUTSIDE RECORDS SUMMARY | 2019-01-18 07:37 | XMS REPORT ---
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 Problem Transient ischemic attack G45.9 Active Problem Calculus of kidney with calculus of N20.2 Active ureter Problem Constipation K59.00 Active Problem DVT (deep venous thrombosis) I82.409 Active Problem manager 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 Active anticoagulant Problem [...] Start End Status Dosage System Date Date Omeprazole ND 45903703068 20 mg Orally Sept Active 1 capsule Once a day 2017 Citalopram [facility] 58668230514 10 MG Orally Active 1 tablet Hydrobromide Once a day Diltiazem HCl ND 78362736129 120 MG Orally Active 1 capsule ER Once a day Colace ND 45296697171 100 mg Orally March Active 1 capsule as Three times 04, needed for daily 2018 constipation Nexabiotic [facility] 92472234938 - Orally Active not defined OcuSoft Eye [facility] [address]-14 Active not defined Wash Fluticasone [facility] 92827821350 50 MCG/ACT Sep 19, Active 1 spray in Propionate Nasally Once a 2018 each nostril day Celexa [facility] 75871903062 20 mg Orally Active 1 tablet Once a day Colestid [facility] 04195366221 1 GM Orally Active 1 tablet Twice daily Imodium A-D [facility] 11005360955 2 MG Orally Active 1 tablet as Four times a needed day Latanoprost [facility] 53767516950 0.005 % Active 1 drop into Ophthalmic affected eye Once a day in the evening Nystatin [facility] 80432793801 599844 UNIT/GM Active 1 application Externally to affected Twice a day area Loratadine [facility] 72330272981 10 MG Orally Sep 19, Active 1 tablet Once a day 2017 Omeprazole ND 10921107712 20 MG Active TAKE 1 CAPSULE BY MOUTH EVERY DAY. Gabapentin [facility] 07320765002 300 MG Orally Active 1 capsule in Three times a am 1 capsule day at noon and 2 capsules at bedtime Prilosec [facility] [address]-18 20 mg Orally Active 1 capsule Once a day Milk of [facility] [address]-65 Active not defined Magnesia Fenofibrate [facility] 52187499659 145 MG Orally Active 1 tablet with Once a day food Xarelto [facility] 50188875736 20 mg Orally Active 1 tablet Once a day evening Restasis [facility] 73876769076 0.05 % Active 1 drop into Ophthalmic affected eye Twice a day Ultram [facility] 45852873422 50 MG Orally Active 1 tablet as every 6 hrs needed Losartan [facility] 95134112251 50 MG Orally Active 1 tablet Potassium Once a day Centrum Silver [facility] [address]-00 Active not defined Combigan [facility] 66672014570 0.2-0.5 % Active 1 drop into Ophthalmic affected eye Twice a day MiraLax [facility] 63079062859 - Orally Once Active 1 packet mixed a day with 8 ounces of fluid Ocuvite ND 0 Active not defined Results No Known Results Summary Purpose eClinicalWorks Submission
--- OUTSIDE RECORDS SUMMARY | 2019-01-18 07:38 | XMS REPORT ---
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 Active anticoagulant Problem Calculus of kidney with calculus N20.2 Active of ureter Problem History of TIA (transient ischemic Z86.73 Active attack) Assessment Blister of heel S90.829A Active Problem Prediabetes R73.03 Active Problem Chronic constipation K59.09 Active Problem Hypertension, unspecified type I10 Active Problem Depression, unspecified depression F32.9 Active type Problem Deep vein thrombosis (DVT) of left I82.402 Active lower extremity, unspecified chronicity, unspecified vein Problem Hyperlipidemia, unspecified E78.5 Active hyperlipidemia type Medications Medication Code Code Instructions Start End Status Dosage System Date Date MiraLax [facility] [address]-12 - Orally Once Active 1 packet mixed a day with 8 ounces of fluid as needed for constipation Imodium A-D [facility] 62471162258 2 MG Orally as Active 1 tablet as directed needed for diarrhea Xarelto [facility] 50331343712 20 mg Orally Active 1 tablet Once a day evening Omeprazole ND 14832376259 20 mg Orally Sept Active 1 capsule Once a day 2017 Align [facility] 67679-[address]77 - Orally Once Active 1 capsule daily Ultram [facility] 50215902331 50 MG Orally Active 1 tablet as every 6 hrs needed Losartan [facility] 83924970014 50 MG Orally Active 1 tablet Potassium Once a day Combigan [facility] 24177646886 0.2-0.5 % Active 1 drop into Ophthalmic affected eye Once in am Fenofibrate [facility] 00512054226 145 MG Orally Active 1 tablet with Once a day food Omeprazole ND 93198662584 20 MG Active TAKE 1 CAPSULE BY MOUTH EVERY DAY. Centrum Silver [facility] [address]-55 - Orally Once Active 1 tablet 50+Women daily Fluticasone [facility] 24832217418 50 MCG/ACT Active 2 sprays in Propionate Nasally Once a each nostril day as needed for sinus/nasal congestion/susana inage Nexabiotic [facility] 01321732216 - Orally Active not defined Tylenol Extra [facility] 21670257954 500 MG Orally Active 1-2 tablets as Strength every 4-6 needed for hrs.; max 6 fever/headache tablets per /pain day Restasis [facility] 57141704115 0.05 % Active 1 drop into Ophthalmic affected eye Twice a day as needed for dry eyes Gabapentin [facility] 06423271361 300 MG Orally Active 1 capsule Two times a day Diltiazem HCl [facility] 74584580177 120 MG Orally Active 1 capsule ER Once a day Colestid [facility] 18774168509 1 GM Orally Active 1 tablet Twice daily Citalopram [facility] 16132929842 20 mg Orally Active 1 tablet Hydrobromide Once a day Latanoprost [facility] 67179443532 0.005 % Active 1 drop into Ophthalmic affected eye Once a day in the evening OcuSoft Eye [facility] [address]-60 Ophthalmic as Active as directed Wash directed as needed Colace [facility] 95410166773 100 mg Orally Coleen Active 1 capsule for Two times 04, constipation; daily 2018 hold for diarrhea Nystatin [facility] 93512659945 033062 UNIT/GM Active 1 application Externally to affected Twice a day area Ocuvite ND 0 Orally Once Active 1 softgel daily Loratadine [facility] 05630737427 10 MG Orally Active 1 tablet Once a day as needed for allergies Results No Known Results Summary Purpose eClinicalWorks Submission
--- OUTSIDE RECORDS SUMMARY | 2019-01-18 07:38 | XMS REPORT ---
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 95750950073 - Orally Once Active 1 packet mixed a day with 8 ounces of fluid Prilosec [facility] [address]-01 20 mg Orally Active 1 capsule Once a day Fluticasone [facility] 82109212655 50 MCG/ACT Active 1 spray in Propionate Nasally Once a each nostril day Loratadine [facility] 71671122383 10 MG Orally Active 1 tablet Once a day Milk of [facility] [address]-30 Active not defined Magnesia Colestid [facility] 11671853406 1 GM Orally Active 1 tablet Twice daily Fenofibrate [facility] 09939658201 145 MG Orally Active 1 tablet with Once a day food Ultram [facility] 53679912351 50 MG Orally Active 1 tablet as every 6 hrs needed Celexa [facility] 10932575908 20 mg Orally Active 1 tablet Once a day Combigan [facility] 97957834306 0.2-0.5 % Active 1 drop into Ophthalmic affected eye Twice a day Omeprazole ND 24982602721 20 MG Active TAKE 1 CAPSULE BY MOUTH EVERY DAY. Centrum Silver [facility] [address]-21 Active not defined Diltiazem HCl [facility] 03669449893 120 MG Orally Active 1 capsule ER Once a day Losartan ND 24891135501 50 MG Orally Active 1 tablet Potassium Once a day Imodium A-D [facility] 13603029495 2 MG Orally Active 1 tablet as Four times a needed day Gabapentin [facility] 40216459551 300 MG Orally Active 1 capsule in Three times a am 1 capsule day at noon and 2 capsules at bedtime Colace [facility] 18461375630 100 mg Orally Coleen Active 1 capsule as Three times 04, needed for daily 2018 constipation Omeprazole [facility] 93865278859 20 mg Orally Sept Active 1 capsule Once a day [address] [facility] 67684033453 10 MG Orally Active 1 tablet Hydrobromide Once a day Nystatin [facility] 23072655218 914136 UNIT/GM Active 1 application Externally to affected Twice a day area Restasis [facility] 74941129325 0.05 % Active 1 drop into Ophthalmic affected eye Twice a day Xarelto [facility] 73405831805 20 mg Orally Active 1 tablet Once a day evening OcuSoft Eye [facility] [address]-75 Active not defined Wash Latanoprost [facility] 66734333731 0.005 % Active 1 drop into Ophthalmic affected eye Once a day in the evening Nexabiotic [facility] 69001432123 - Orally Active not defined Ocuvite [facility] 0 Active not defined Results No Known Results Immunizations Vaccine Administration Date TB PPD Nov 06, 2018 Summary Purpose eClinicalWorks Submission
--- OUTSIDE RECORDS SUMMARY | 2019-01-18 07:38 | XMS REPORT ---
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
--- OUTSIDE RECORDS SUMMARY | 2019-01-18 07:38 | XMS REPORT ---
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 Active anticoagulant Problem Calculus of kidney with calculus of N20.2 Active ureter Problem History of TIA (transient ischemic Z86.73 Active attack) Assessment Hypertension, unspecified type I10 Active Assessment Hyperlipidemia, unspecified E78.5 Active hyperlipidemia type Assessment Prediabetes R73.03 Active Problem Prediabetes R73.03 Active Problem Chronic constipation K59.09 Active Problem Hypertension, unspecified type I10 Active Problem Depression, unspecified depression F32.9 Active type Assessment Depression, unspecified depression F32.9 Active type Problem Deep vein thrombosis (DVT) of left I82.402 Active lower extremity, unspecified chronicity, unspecified vein Problem Hyperlipidemia, unspecified E78.5 Active hyperlipidemia type Medications Medication Code Code Instructions Start End Status Dosage System Date Date Imodium A-D [facility] 74722119347 2 MG Orally as Active 1 tablet as directed needed for diarrhea Citalopram ND 43812697281 20 mg Orally Active 1 tablet Hydrobromide Once a day Fenofibrate [facility] 35617836325 145 MG Orally Active 1 tablet with Once a day food Losartan [facility] 59370686365 50 MG Orally Active 1 tablet Potassium Once a day OcuSoft Eye [facility] [address]-52 Ophthalmic as Active as directed Wash directed as needed Tylenol Extra [facility] 20665668793 500 MG Orally Active 1-2 tablets as Strength every 4-6 needed for hrs.; max 6 fever/headache tablets per /pain day Align [facility] 6[address]2363 - Orally Once Active 1 capsule daily Gabapentin [facility] 16973710443 300 MG Orally Active 1 capsule Two times a day Colestid [facility] 70761606817 1 GM Orally Active 1 tablet Twice daily Ocuvite ND 0 Orally Once Active 1 softgel daily Omeprazole [facility] 42463954736 20 MG Active TAKE 1 CAPSULE BY MOUTH EVERY DAY. Loratadine [facility] 50759431657 10 MG Orally Active 1 tablet Once a day as needed for allergies Centrum Silver [facility] [address]-05 - Orally Once Active 1 tablet 50+Women daily Nexabiotic [facility] 68898111401 - Orally Active not defined MiraLax [facility] [address]-37 - Orally Once Active 1 packet mixed a day with 8 ounces of fluid as needed for constipation Omeprazole [facility] 37980576272 20 mg Orally Sept Active 1 capsule Once a day 2017 Ultram [facility] 95677845482 50 MG Orally Active 1 tablet as every 6 hrs needed Diltiazem HCl [facility] 26632826548 120 MG Orally Active 1 capsule ER Once a day Xarelto [facility] 07997956595 20 mg Orally Active 1 tablet Once a day evening Combigan [facility] 27380893179 0.2-0.5 % Active 1 drop into Ophthalmic affected eye Once in am Nystatin [facility] 23868303473 859501 UNIT/GM Active 1 application Externally to affected Twice a day area Fluticasone [facility] 38041497272 50 MCG/ACT Active 2 sprays in Propionate Nasally Once a each nostril day as needed for sinus/nasal congestion/susana inage Restasis [facility] 35480476878 0.05 % Active 1 drop into Ophthalmic affected eye Twice a day as needed for dry eyes Latanoprost [facility] 60414799804 0.005 % Active 1 drop into Ophthalmic affected eye Once a day in the evening Colace [facility] 37296131249 100 mg Orally Coleen Active 1 capsule for Two times 04, constipation; daily 2018 hold for diarrhea Results No Known Results Summary Purpose eClinicalWorks Submission
--- OUTSIDE RECORDS SUMMARY | 2019-01-18 07:38 | XMS REPORT ---
[...] institution Problem Memory loss R41.3 Active Problem senior living current use of Z79.01 Active anticoagulant Problem Calculus of kidney with calculus of N20.2 Active ureter Problem History of TIA (transient ischemic Z86.73 Active attack) Assessment Encounter for examination for Z02.2 Active admission to residential institution Problem Prediabetes R73.03 Active Problem Chronic constipation K59.09 Active Problem Hypertension, unspecified type I10 Active Problem Depression, unspecified depression F32.9 Active type Problem Deep vein thrombosis (DVT) of left I82.402 Active lower extremity, unspecified chronicity, unspecified vein Problem Hyperlipidemia, unspecified E78.5 Active hyperlipidemia type Medications Medication Code Code Instructions Start End Status Dosage System Date Date Latanoprost [facility] [address]-13 0.005 % Active 1 drop into Ophthalmic affected eye Once a day in the evening Nexabiotic [facility] 14609078541 - Orally Active not defined Combigan [facility] [address]-24 0.2-0.5 % Active 1 drop into Ophthalmic affected eye Once in am MiraLax [facility] [address]-95 - Orally Once Active 1 packet mixed a day with 8 ounces of fluid as needed for constipation Colace [facility] [address]-85 100 mg Orally March Active 1 capsule for Two times 04, constipation; daily 2018 hold for diarrhea Align [facility] [address]2661-89612 - Orally Once Active 1 capsule daily Centrum Silver [facility] [address]-05 - Orally Once Active 1 tablet 50+Women daily Ocuvite ND 0 Orally Once Active 1 softgel daily Restasis [facility] [address]-89 0.05 % Active 1 drop into Ophthalmic affected eye Twice a day as needed for dry eyes Omeprazole [facility] 98996592465 20 MG Active TAKE 1 CAPSULE BY MOUTH EVERY DAY. Citalopram [facility] 04689575486 20 MG Orally Active 1 tablet Hydrobromide Once a day Xarelto [facility] 09307442483 20 mg Orally Active 1 tablet Once a day evening Tylenol Extra [facility] [address]-49 500 MG Orally Active 1-2 tablets as Strength every 4-6 needed for hrs.; max 6 fever/headache tablets per /pain day Gabapentin [facility] 77892525149 300 MG Orally Active 1 capsule Two times a day Nystatin [facility] 75540083525 453732 UNIT/GM Active 1 application Externally to affected Twice a day area OcuSoft Eye [facility] [address]-03 Ophthalmic as Active as directed Wash directed as needed Fluticasone [facility] [address]-27 50 MCG/ACT Active 2 sprays in Propionate Nasally Once a each nostril day as needed for sinus/nasal congestion/susana inage Ultram [facility] 85882231373 50 MG Orally Active 1 tablet as every 6 hrs needed Imodium A-D [facility] [address]-27 2 MG Orally as Active 1 tablet as directed needed for diarrhea Fenofibrate [facility] 90594131058 145 MG Orally Active 1 tablet with Once a day food Losartan [facility] 15796643483 50 MG Orally Active 1 tablet Potassium Once a day Loratadine [facility] [address]-01 10 MG Orally Active 1 tablet Once a day as needed for allergies Colestid [facility] 49170536582 1 GM Orally Active 1 tablet Twice daily Diltiazem HCl [facility] 13893222947 120 MG Orally Active 1 capsule ER Once a day Omeprazole [facility] 37980772617 20 mg Orally Sept Active 1 capsule Once a day 2017 Results No Known Results Summary Purpose eClinicalWorks Submission
[2019-01-18] MEDS ORDERED: LIDOCAINE 1% 20 ML MDV ONE (07:57)
[2019-01-18] MEDS ORDERED: TETANUS & DIPHTHERIA TOX,ADULT 0.5 ML VIAL ONE (07:57)
[2019-01-18] MEDS ORDERED: CEFAZOLIN/SWI 1gm 0 GM/0 ML SYR ONE ×2 (07:58→07:59)
[2019-01-18 07:59] LABS: Absolute Lymphocytes (CBC) 1.8 K/uL (0.7-4.9); Absolute Monocytes 0.6 K/uL (0.1-1.3); Absolute Neutrophil 4.4 K/uL (1.8-8.0); Basophils % 0.9 % (0-1.3); Eosinophils % 5.4 % (0-4.4); Hematocrit 38.9 % (36.0-45.0); Lymphocytes % 24.4 % (15.3-44.8); MPV 8.9 fL (7.6-11.3); Monocytes % 8.6 % (3.3-12.3); RBC Red Blood Cell Count 4.05 M/uL (3.86-4.86)
[2019-01-18] MEDS ORDERED: FENTANYL CITR 100 MCG/2 ML ONE (08:05)
[2019-01-18] MEDS ORDERED: NA CHLORIDE 0.9% 1,000 ML ONE ×2 (08:05→10:57)
[2019-01-18] MEDS ORDERED: FAMOTIDINE 20 MG/2 ML VIAL IV ONE (08:05)
[2019-01-18] MEDS ORDERED: ONDANSETRON 4 MG/2 ML VIAL ONE (08:05)
[2019-01-18 08:10] LABS: Protime INR 1.8
--- NOTE | 2019-01-18 08:17 | RAD REPORT ---
EXAM DESCRIPTION: RAD - Shoulder Left 2 View - 01/18/2019 8:07 am CLINICAL HISTORY: Fall, shoulder pain COMPARISON: None. TECHNIQUE: Internal and external rotation views of the left shoulder were obtained. FINDINGS: The clavicle is intact. AC joint is normal in appearance. Acromial humeral joint space is normal. No dislocation of the proximal humerus. There is a transverse fracture at the surgical neck as well a s an oblique fracture through the greater tuberosity. No significant distraction or angulation deform ity. No pathologic component. IMPRESSION: Comminuted proximal left humerus fracture without dislocation.
[2019-01-18 08:18] LABS: ALT/SGPT 20 U/L (12-78); AST/SGOT 24 U/L (15-37); Albumin 3.2 g/dL (3.4-5.0); Alkaline Phosphatase 55 U/L (45-117); BUN Blood Urea Nitrogen 25 mg/dL (7-18); Bicarbonate 24 mmol/L (21-32); Bilirubin Direct 0.2 mg/dL (0-0.2); Bilirubin Total 0.6 mg/dL (0.2-1.0); Glucose Level 86 mg/dL (74-106); NT PRO-BNP 705 pg/mL (<450); Potassium 4.1 mmol/L (3.5-5.1); Protein, Total 6.8 g/dL (6.4-8.2); Sodium Level 146 mmol/L (136-145); Troponin (Emerg Dept Use Only) < 0.02 ng/mL (0.0-0.045)
--- NOTE | 2019-01-18 08:24 | ER ---
Nurse's Notes [facility] Name: Adamaris Beaver Age: 88 yrs Sex: Female : 1930 Arrival Date: 01/18/2019 Time: 07:36 Bed 4 Private MD: Genia Chaudhary Diagnosis: Fall due to bumping against object;Pulmonary fibrosis, unspecified;2-part fracture of surgical neck of humerus-left;Fracture of thoracic vertebra-T8, 50 % compression fracture;Laceration without foreign body of other part of head-left brow, facial contusion Presentation: 01/18 07:31 Presenting complaint: EMS states: fall injury after coming out of the bathroom, stated sv she stumbled over her feet, denies LOC. c/o left shoulder pain/deformity, left eyebrow laceration, left cheek swelling and bruising, left upper posterior arm skin tear, left knee abrasion. BP 180/90 HR-94 RR-22 96% RA. Care prior to arrival:. Mechanism of Injury: Fall from standing position. Trauma event details: Injury occurred in the [facility], Injury occurred: at home. Injury occurred: January 18, 2019. 07:31 Acuity: VINI 2 sv 07:31 Method Of Arrival: EMS: [facility] sv 07:37 Transition of care: [facility]. Onset of symptoms was January 18, 2019. Risk sv Assessment: Do you want to hurt yourself or someone else? Patient reports no desire to harm self or others. Initial Sepsis Screen: Does the patient meet any 2 criteria? No. Patient's initial sepsis screen is negative. Does the patient have a suspected source of infection? No. Patient's initial sepsis screen is negative. Trauma Activation: Alert Physician: ED Physician; Name: Dr Henning; Notified At: 07:26; Arrived At: 07:26 Physician: General Surgeon; Name: ; Notified At: 07:26; Arrived At: Physician: Radiology; Name: Esthela Gallegos; Notified At: 07:26; Arrived At: Physician: Respiratory; Name: ; Notified At: 07:26; Arrived At: Physician: Lab; Name: ; Notified At: 07:26; Arrived At: 07:26 Primary RN: Christal Cervantes RN, Secondary RN: Nasim Petersen RN, reuse technician: Verito, Unit incoming freight clerk:Esperanza Historical: - Allergies: 07:48 Bactrim; sv 07:48 Demerol; sv 07:48 Erythromycin; sv 07:48 Fosamax; sv 07:48 Levaquin; sv 07:48 Sulfa (Sulfonamide Antibiotics); sv - Home Meds: 07:48 citalopram 20 mg tab 1 tab once daily [Active]; Colestid Oral 2 times per day [Active]; sv Combigan 0.2-0.5 % ophthalmic drop 1 drop daily [Active]; diltiazem HCl 120 mg Oral cpER 1 cap once daily [Active]; Colace Oral [Active]; fenofibrate 145 Oral once daily [Active]; Centrum Silver Women Oral daily [Active]; gabapentin 300 mg Oral cap four times a day [Active]; losartan 50 mg Oral tab 1 tab once daily [Active]; Ocuvel Oral daily [Active]; omeprazole 20 mg Oral cpDR 1 cap once daily [Active]; Xarelto 20 mg Oral tab 1 tab once daily [Active]; lantanoprost opthalmic solm 0.005% 1 drop both eyes bedtime [Active]; bystop external powder 690803 unit/gm topically to affected areas BID [Active]; OcuSoft Lid Scrub topical padm [Active]; polyethylene glycol 3350 oral packet 1 packets in 8 oz water or juice daily prn [Active]; Restasis 0.05 % ophthalmic dpet 1 drop 2 times per day [Active]; Systane 0.4-0.3 % ophthalmic drop 1 drop 1 drop daily at 0800 and 1-2 drops at 1900. [Active]; timolol maleate 0.25 % Opht solg 1 drop daily both eyes [Active]; - PMHx: 07:48 Depression; Diverticulitis; Gastric Reflux; High Cholesterol; Hypertension; Kidney sv stones; neuropathy; TIA; DVT; Hyperlipidemia; - Immunization history:: Adult Immunizations up to date. - Social history:: Smoking status: Patient/guardian denies using tobacco. - Immunization history: Last tetanus immunization: - up to date. < 5 years ago. - Ebola Screening: : No symptoms or risks identified at this time. Screenin:53 Abuse screen: Denies threats or abuse. Denies injuries from another. Tuberculosis sv screening: No symptoms or risk factors identified. 07:53 Nutritional screening: No deficits noted. Fall Risk Fall in past 12 months (25 points). sv No secondary diagnosis (0 pts). IV access (20 points). Ambulatory Aid- None/Bed Rest/Nurse Assist (0 pts). Gait- Normal/Bed Rest/Wheelchair (0 pts) Mental Status- Oriented to own ability (0 pts). Total Martinez Fall Scale indicates High Risk Score (45 or more points). Fall prevention measures have been instituted. Side Rails Up X 2 Frequent Obs/Assessments Occuring Family Present and informed to notify staff if the need to leave the bedside As available patient and family educated on Fall Prevention Program and Strategies. Primary Survey: 07:37 NO uncontrolled hemorrhage observed. A: The patient is alert. Airway: patent, No sv supplemental oxygen in use on arrival. Oral cavity: clear, Trachea midline. Breathing/Chest: Respiratory pattern: regular, Respiratory effort: spontaneous, unlabored, Chest inspection: symmetrical rise and fall of the chest. Circulation: Heart tones present. Pulses: palpable right radial artery and left radial artery. Skin color: pink, Skin temperature: warm, dry. Disability Alert. Exposure/Environment: All clothing and personal items were removed. Forensic evidence collection is not deemed to be indicated at this time. Items placed in patient belonging bag. There is no evidence of uncontrolled external bleeding. Obvious injury(ies) are noted at this time: abrasion to left knee, laceration above left eyebrow, skin tear to left upper posterior arm, swelling to left eye and cheek. 08:34 Reassessment Airway Airway Patent Oxygen No O2 Oral cavity Clear Trachea Midline sv Breathing/Chest Respiratory pattern Regular Respiratory effort Spontaneous Unlabored Chest inspection Symmetrical Circulation Heart tones Present Pulses Palpable Color [place] Temperature Warm Dry Disability Alert. Secondary Survey: 07:37 HEENT: Face Other swelling to left cheek. Gastrointestinal: No deficits noted. : No sv signs and/or symptoms were reported regarding the genitourinary system. Musculoskeletal: No signs and/or symptoms reported regarding the musculoskeletal system. Assessment: 07:59 General: Appears uncomfortable, Behavior is calm, cooperative. Pain: Complains of pain la1 in posterior aspect of left shoulder, left hip, face. Neuro: Level of Consciousness is awake, alert, obeys commands, Oriented to person, place, time, situation. Cardiovascular: Heart tones S1 S2 present Capillary refill < 3 seconds Chest pain is denied. Respiratory: Airway is patent Trachea midline Respiratory effort is even, unlabored, Respiratory pattern is regular, symmetrical, Breath sounds are clear bilaterally. GI: No signs and/or symptoms were reported involving the gastrointestinal system. : No signs and/or symptoms were reported regarding the genitourinary system. Derm: Skin is pink, warm \T\ dry. Musculoskeletal: Bony deformity noted of anterior aspect of left shoulder Reports pain in posterior aspect of left shoulder and anterior aspect of left shoulder and face. Injury Description: Laceration sustained to middle aspect of left eyebrow is 2.6 to 7.5 cm long, not bleeding. 08:43 Reassessment: Patient appears in no apparent distress at this time. No changes from sv previously documented assessment. Patient and/or family updated on plan of care and expected duration. Pain level reassessed. Patient is alert, oriented x 3, equal unlabored respirations, skin warm/dry/pink. 09:06 Reassessment: Patient appears in no apparent distress at this time. No changes from sv previously documented assessment. Patient and/or family updated on plan of care and expected duration. Pain level reassessed. Patient is alert, oriented x 3, equal unlabored respirations, skin warm/dry/pink. 11:15 Reassessment: Patient appears in no apparent distress at this time. Patient and/or sv family updated on plan of care and expected duration. Pain level reassessed. Patient is alert, oriented x 3, equal unlabored respirations, skin warm/dry/pink. 12:32 Reassessment: Report given by Raul DE LA TORRE to EMS. sv Vital Signs: 07:37 BP 170 / 79; Pulse 88; Resp 20; Temp 98.2; Pulse Ox 99% ; sv 08:33 BP 166 / 76; Pulse 83; Resp 18; Temp 97.7(TE); Pulse Ox 98% on R/A; sv 09:30 BP 154 / 76; Pulse 86; Resp 18; Pulse Ox 98% ; sv 10:00 BP 152 / 87; Pulse 89; Resp 18; Pulse Ox 100% ; sv 10:30 BP 153 / 85; Pulse 86; Resp 20; Pulse Ox 95% ; sv Logan Coma Score: 07:37 Eye Response: spontaneous(4). Verbal Response: oriented(5). Motor Response: obeys sv commands(6). Total: 15. 08:33 Eye Response: spontaneous(4). Verbal Response: oriented(5). Motor Response: obeys sv commands(6). Total: 15. Trauma Score (Adult): 07:37 Eye Response: spontaneous(1); Verbal Response: oriented(1); Motor Response: obeys sv commands(2); Systolic BP: > 89 mm Hg(4); Respiratory Rate: 10 to 29 per min(4); Logan Score: 15; Trauma Score: 12 08:33 Eye Response: spontaneous(1); Verbal Response: oriented(1); Motor Response: obeys sv commands(2); Systolic BP: > 89 mm Hg(4); Respiratory Rate: 10 to 29 per min(4); Logan Score: 15; Trauma Score: 12 ED Course: 07:35 Initial lab(s) drawn, by ED staff, sent to lab. T\T\S collected, blood band applied to sv patient. Inserted saline lock: 20 gauge in right antecubital area, using aseptic technique. ,using aseptic technique. done by Starla DE LA TORRE. Blood collected. 07:36 Patient arrived in ED. sv 07:37 Christal Smith, RN is Primary Nurse. sv 07:40 Triage completed. sv 07:40 Patient has correct armband on for positive identification. Bed in low position. Call sv light in reach. Side rails up X2. Pulse ox on. NIBP on. Door closed. Head of bed elevated. 07:40 Arm band placed on. sv 07:40 Patient maintains SpO2 saturation greater than 95% on room air. sv 07:40 Thermoregulation: warm blanket given to patient. sv 07:43 Cal Henning MD is Attending Physician. hilaria 07:[address] via stretcher. sv 07:54 EKG done, by ED staff, reviewed by Cal Henning MD. dh3 08:02 Genia Chaudhary MD is Private Physician. sv 08:07 Shoulder Left (2 View) XRAY In Process Unspecified. EDMS 08:11 CT completed. Patient moved to radiology. bq 08:13 CT Traumagram (Head C Spine CAP wo con) In Process Unspecified. EDMS 08:14 Facial Bones W/O Con CT In Process Unspecified. EDMS 08:21 Kumar Resendez MD is Hospitalizing Provider. hilaria 08:25 XRAY Chest (1 view) In Process Unspecified. EDMS 08:25 Pelvis XRAY In Process Unspecified. EDMS 08:25 Hip Left 2 View XRAY In Process Unspecified. EDMS 08:40 Dumas cath inserted, using sterile technique, by tobacco cutter, balloon inflated, to gravity la1 drainage, returned clear yellow urine. Patient tolerated well. 10:30 initiated a transfer with Kaitlynn at the [facility]. ann 11:[address] Jalloh the trauma doc insulation mechanic for [facility] with Dr. Juvencio juarez for patient transfer consultation. 11:04 administrative approval given by Kaitlynn Spears at the [facility]/ Dr. ann Jalloh has accepted the patient in transfer/ patient is going to the [facility] ER/ report to be called to [phone]. 11:35 No provider procedures requiring assistance completed. Patient transferred, IV remains sv in place. intact. Administered Medications: 07:58 Drug: Zofran 4 mg Route: IVP; Site: right antecubital; la1 08:45 Follow up: Response: No adverse reaction la1 07:58 Drug: Pepcid 20 mg Route: IVP; Site: right antecubital; la1 08:45 Follow up: Response: No adverse reaction la1 07:59 Drug: fentaNYL (PF) 25 mcg Route: IVP; Site: right antecubital; la1 08:45 Follow up: Response: No adverse reaction; Pain is decreased la1 07:59 Drug: NS 0.9% 500 ml Route: IV; Rate: bolus; Site: right antecubital; la1 08:43 Follow up: IV Status: Completed infusion la1 08:30 Drug: fentaNYL (PF) 25 mcg Route: IVP; Site: right antecubital; la1 08:45 Follow up: Response: No adverse reaction; Pain is decreased la1 08:43 Drug: NS 0.9% 1000 ml Route: IV; Rate: 125 ml/hr; Site: right antecubital; la1 08:44 Follow up: IV Status: Infusion continued upon admission la1 12:33 Follow up: IV Status: Infusion continued upon transfer sv 08:44 Not Given (Other Intervention Used): Tetanus-Diphtheria Toxoid Adult 0.5 ml IM once la1 08:44 Not Given (Duplicate Order): Ancef 1 grams IVPB once hilaria 09:06 Drug: Rocephin - (cefTRIAXone) 1 grams Route: IVPB; Infused Over: 30 mins; Site: right la1 antecubital; 09:09 Follow up: Response: No adverse reaction; IV Status: Completed infusion; IV Intake: 10mlsv 09:08 Drug: Lidocaine-Epinephrine -1%: (1:100,000) 5 ml Volume: 20 ml; Route: Infiltration; la1 Intake: 07:37 PO: 0ml; Total: 0ml. sv 08:33 PO: 0ml; Total: 0ml. sv 09:09 IV: 10ml; Total: 10ml. sv Output: 07:37 Urine: 0ml; Total: 0ml. sv 08:33 Urine: 0ml; Total: 0ml. sv Outcome: 08:23 Decision to Hospitalize by Provider. hilaria 10:19 ER care complete, transfer ordered by . hilaria 11:32 Transferred by ground EMS to [facility], Transfer form completed. X-rays sent sv w/ patient. Note: Report given to Peggy DE LA TORRE 11:32 Condition: stable 11:32 Instructed on the need for transfer. 11:36 Patient's length of stay in the Emergency Department was greater than 2 hours. due to sv laceration repair and radiology reports.Patient's length of stay extended due to 12:33 Patient left the ED. sv Signatures: Dispatcher [employer] EDChristal Low RN RN sv Anderson, Corey, MD MD cha Quilty, Betty bq Attema, Lee, RN RN la1 Verito Rivas Esperanza Knott Corrections: (The following items were deleted from the chart) 07:49 07:37 Pulse 88bpm; Resp 20bpm; Pulse Ox 99%; Temp 98.2F; sv sv
--- NOTE | 2019-01-18 08:24 | EDPHYS ---
Physician Documentation [facility] Name: Adamaris Beaver Age: 88 yrs Sex: Female : 1930 Arrival Date: 01/18/2019 Time: 07:36 Bed 4 Private MD: Genia Chaudhary ED Physician Cal Henning HPI: 01/18 07:52 This 88 yrs old Female presents to ER via EMS with complaints of Fall Injury, hilaria Laceration To Head. 07:52 Details of fall: The patient fell from an upright position, while walking. Onset: The hilaria symptoms/episode began/occurred just prior to arrival. Associated injuries: The patient sustained injury to the head, face, contusion, anterior aspect of left shoulder, left bicep, posterior aspect of left shoulder and left tricep, decreased range of motion. Severity of symptoms: At their worst the symptoms were moderate, in the emergency department the symptoms are unchanged. Historical: - Allergies: 07:48 Bactrim; sv 07:48 Demerol; sv 07:48 Erythromycin; sv 07:48 Fosamax; sv 07:48 Levaquin; sv 07:48 Sulfa (Sulfonamide Antibiotics); sv - Home Meds: 07:48 citalopram 20 mg tab 1 tab once daily [Active]; Colestid Oral 2 times per day [Active]; sv Combigan 0.2-0.5 % ophthalmic drop 1 drop daily [Active]; diltiazem HCl 120 mg Oral cpER 1 cap once daily [Active]; Colace Oral [Active]; fenofibrate 145 Oral once daily [Active]; Centrum Silver Women Oral daily [Active]; gabapentin 300 mg Oral cap four times a day [Active]; losartan 50 mg Oral tab 1 tab once daily [Active]; Ocuvel Oral daily [Active]; omeprazole 20 mg Oral cpDR 1 cap once daily [Active]; Xarelto 20 mg Oral tab 1 tab once daily [Active]; lantanoprost opthalmic solm 0.005% 1 drop both eyes bedtime [Active]; bystop external powder [id number] unit/gm topically to affected areas BID [Active]; OcuSoft Lid Scrub topical padm [Active]; polyethylene glycol 3350 oral packet 1 packets in 8 oz water or juice daily prn [Active]; Restasis 0.05 % ophthalmic dpet 1 drop 2 times per day [Active]; Systane 0.4-0.3 % ophthalmic drop 1 drop 1 drop daily at 0800 and 1-2 drops at 1900. [Active]; timolol maleate 0.25 % Opht solg 1 drop daily both eyes [Active]; - PMHx: 07:48 Depression; Diverticulitis; Gastric Reflux; High Cholesterol; Hypertension; Kidney sv stones; neuropathy; TIA; DVT; Hyperlipidemia; - Immunization history:: Adult Immunizations up to date. - Social history:: Smoking status: Patient/guardian denies using tobacco. - Immunization history: Last tetanus immunization: - up to date. < 5 years ago. - Ebola Screening: : No symptoms or risks identified at this time. ROS: 07:54 Constitutional: Negative for fever, chills, and weight loss, Eyes: Negative for injury, hilaria pain, redness, and discharge, ENT: Negative for injury, pain, and discharge, Neck: Negative for injury, pain, and swelling, Cardiovascular: Negative for chest pain, palpitations, and edema, Respiratory: Negative for shortness of breath, cough, wheezing, and pleuritic chest pain, Abdomen/GI: Negative for abdominal pain, nausea, vomiting, diarrhea, and constipation, Back: Negative for injury and pain, : Negative for injury, bleeding, discharge, and swelling, MS/Extremity: Negative for injury and deformity, Neuro: Negative for headache, weakness, numbness, tingling, and seizure, Psych: Negative for depression, anxiety, suicide ideation, homicidal ideation, and hallucinations, Allergy/Immunology: Negative for hives, rash, and allergies, Endocrine: Negative for neck swelling, polydipsia, polyuria, polyphagia, and marked weight changes, Hematologic/Lymphatic: Negative for swollen nodes, abnormal bleeding, and unusual bruising. 07:54 Skin: Positive for laceration(s), swelling. Exam: 07:54 Constitutional: This is a well developed, well nourished patient who is awake, alert, hilaria and in no acute distress. Eyes: Pupils equal round and reactive to light, extra-ocular motions intact. Lids and lashes normal. Conjunctiva and sclera are non-icteric and not injected. Cornea within normal limits. Periorbital areas with no swelling, redness, or edema. ENT: Nares patent. No nasal discharge, no septal abnormalities noted. Tympanic membranes are normal and external auditory canals are clear. Oropharynx with no redness, swelling, or masses, exudates, or evidence of obstruction, uvula midline. Mucous membranes moist. Neck: Trachea midline, no thyromegaly or masses palpated, and no cervical lymphadenopathy. Supple, full range of motion without nuchal rigidity, or vertebral point tenderness. No Meningismus. Chest/axilla: Normal chest wall appearance and motion. Nontender with no deformity. No lesions are appreciated. Cardiovascular: Regular rate and rhythm with a normal S1 and S2. No gallops, murmurs, or rubs. Normal PMI, no JVD. No pulse deficits. Respiratory: Lungs have equal breath sounds bilaterally, clear to auscultation and percussion. No rales, rhonchi or wheezes noted. No increased work of breathing, no retractions or nasal flaring. Abdomen/GI: Soft, non-tender, with normal bowel sounds. No distension or tympany. No guarding or rebound. No evidence of tenderness throughout. Back: No spinal tenderness. No costovertebral tenderness. Full range of motion. Female : Normal external genitalia. Skin: Warm, dry with normal turgor. Normal color with no rashes, no lesions, and no evidence of cellulitis. Neuro: Awake and alert, GCS 15, oriented to person, place, time, and situation. Cranial nerves II-XII grossly intact. Motor strength 5/5 in all extremities. Sensory grossly intact. Cerebellar exam normal. Normal gait. Psych: Awake, alert, with orientation to person, place and time. Behavior, mood, and affect are within normal limits. 07:54 Head/face: Noted is a laceration(s), that is deep, that is linear, of the left eye. 09:57 Back: no mid thoracic pain on palpitation, specifically T8. hilaria Vital Signs: 07:37 BP 170 / 79; Pulse 88; Resp 20; Temp 98.2; Pulse Ox 99% ; sv 08:33 BP 166 / 76; Pulse 83; Resp 18; Temp 97.7(TE); Pulse Ox 98% on R/A; sv 09:30 BP 154 / 76; Pulse 86; Resp 18; Pulse Ox 98% ; sv 10:00 BP 152 / 87; Pulse 89; Resp 18; Pulse Ox 100% ; sv 10:30 BP 153 / 85; Pulse 86; Resp 20; Pulse Ox 95% ; sv [place] Coma Score: 07:37 Eye Response: spontaneous(4). Verbal Response: oriented(5). Motor Response: obeys sv commands(6). Total: 15. 08:33 Eye Response: spontaneous(4). Verbal Response: oriented(5). Motor Response: obeys sv commands(6). Total: 15. Trauma Score (Adult): 07:37 Eye Response: spontaneous(1); Verbal Response: oriented(1); Motor Response: obeys sv commands(2); Systolic BP: > 89 mm Hg(4); Respiratory Rate: 10 to 29 per min(4); [place] Score: 15; Trauma Score: 12 08:33 Eye Response: spontaneous(1); Verbal Response: oriented(1); Motor Response: obeys sv commands(2); Systolic BP: > 89 mm Hg(4); Respiratory Rate: 10 to 29 per min(4); [place] Score: 15; Trauma Score: 12 Laceration: 07:54 Wound Repair of 2.5cm ( 1.0in ) subcutaneous laceration to left eye. Linear shaped.. hilaria Distal neuro/vascular/tendon intact. Anesthesia: Local anesthetic administered with 5 mls of 1% lidocaine w/ Epi. Wound prep: Simple cleansing with betadine. Skin closed with 3 5-0 Prolene using interrupted sutures and sterile technique. Dressed with Neosporin. Patient tolerated well. MDM: 07:43 Patient medically screened. [facility] 07:57 Data reviewed: vital signs, nurses notes, lab test result(s), EKG, radiologic studies, [facility] CT scan, plain films. 01/18 07:47 Order name: Basic Metabolic Panel; Complete Time: 08:19 [facility] 01/18 07:47 Order name: CBC with Diff; Complete Time: 08:19 [facility] 01/18 07:47 Order name: LFT's; Complete Time: 08:19 [facility] 01/18 07:47 Order name: Magnesium; Complete Time: 08:19 [facility] 01/18 07:47 Order name: NT PRO-BNP; Complete Time: 08:19 [facility] 01/18 07:47 Order name: PT-INR; Complete Time: 08:42 [facility] 01/18 07:47 Order name: Troponin (emerg Dept Use Only); Complete Time: 08:19 [facility] 01/18 07:47 Order name: XRAY Chest (1 view); Complete Time: 08:42 [facility] 01/18 07:47 Order name: Pelvis XRAY; Complete Time: 08:42 [facility] 01/18 07:47 Order name: Shoulder Left (2 View) XRAY; Complete Time: 08:19 [facility] 01/18 07:47 Order name: CT Traumagram (Head C Spine CAP wo con); Complete Time: 08:42 [facility] 01/18 07:51 Order name: Type And Screen; Complete Time: 09:57 [facility] 01/18 08:44 Order name: Urine Culture [facility] 01/18 08:46 Order name: Urine Dipstick--Ancillary (enter results); Complete Time: 09:57 01/18 07:47 Order name: EKG - Nurse/Tech; Complete Time: 07:55 [facility] 01/18 07:47 Order name: IV Saline Lock; Complete Time: 08:05 [facility] 01/18 07:47 Order name: Facial Bones W/O Con CT; Complete Time: 08:42 [facility] 01/18 07:47 Order name: Hip Left 2 View XRAY; Complete Time: 08:42 [facility] 01/18 07:47 Order name: Labs collected and sent; Complete Time: 08:05 [facility] 01/18 07:47 Order name: O2 Per Protocol; Complete Time: 08:05 [facility] 01/18 07:47 Order name: O2 Sat Monitoring; Complete Time: 08:05 [facility] 01/18 07:47 Order name: Dumas; Complete Time: 08:40 [facility] 01/18 07:52 Order name: Prolene, Sutures; Complete Time: 08:03 [facility] 01/18 07:52 Order name: Dressing - Wound; Complete Time: 12:33 [facility] 01/18 07:52 Order name: Gloves, Sterile; Complete Time: 08:03 [facility] 01/18 07:52 Order name: Setup Suture Tray; Complete Time: 08:03 hilaria 01/18 08:16 Order name: Ice pack; Complete Time: 12:33 [facility] 01/18 08:20 Order name: Shoulder Immobilizer; Complete Time: 12:32 [facility] Administered Medications: 07:58 Drug: Zofran 4 mg Route: IVP; Site: right antecubital; la1 08:45 Follow up: Response: No adverse reaction la1 07:58 Drug: Pepcid 20 mg Route: IVP; Site: right antecubital; la1 08:45 Follow up: Response: No adverse reaction la1 07:59 Drug: fentaNYL (PF) 25 mcg Route: IVP; Site: right antecubital; la1 08:45 Follow up: Response: No adverse reaction; Pain is decreased la1 07:59 Drug: NS 0.9% 500 ml Route: IV; Rate: bolus; Site: right antecubital; la1 08:43 Follow up: IV Status: Completed infusion la1 08:30 Drug: fentaNYL (PF) 25 mcg Route: IVP; Site: right antecubital; la1 08:45 Follow up: Response: No adverse reaction; Pain is decreased la1 08:43 Drug: NS 0.9% 1000 ml Route: IV; Rate: 125 ml/hr; Site: right antecubital; la1 08:44 Follow up: IV Status: Infusion continued upon admission la1 12:33 Follow up: IV Status: Infusion continued upon transfer sv 08:44 Not Given (Other Intervention Used): Tetanus-Diphtheria Toxoid Adult 0.5 ml IM once la1 08:44 Not Given (Duplicate Order): Ancef 1 grams IVPB once hilaria 09:06 Drug: Rocephin - (cefTRIAXone) 1 grams Route: IVPB; Infused Over: 30 mins; Site: right la1 antecubital; 09:09 Follow up: Response: No adverse reaction; IV Status: Completed infusion; IV Intake: 10mlsv 09:08 Drug: Lidocaine-Epinephrine -1%: (1:100,000) 5 ml Volume: 20 ml; Route: Infiltration; la1 Disposition: 01/18/19 10:19 Transfer ordered to [facility]. Diagnosis are Fall due to bumping against object, Pulmonary fibrosis, unspecified, 2-part fracture of surgical neck of humerus - left, Fracture of thoracic vertebra - T8, 50 % compression fracture, Laceration without foreign body of other part of head - left brow, facial contusion. - Reason for transfer: Higher level of care. - Accepting physician is to , trauma. - Condition is Fair. - Problem is new. - Symptoms are unchanged. Signatures: Dispatcher [employer] Christal Caicedo RN Cal Arndt MD MD cha Attema, Lee, RN RN laEsperanza Obrien Corrections: (The following items were deleted from the chart) 08:43 08:23 Hospitalization Ordered by Kumar Resendez MD for Inpatient Admission. Preliminary eb diagnosis is Fall due to bumping against object; Weakness; Laceration without foreign body of unspecified part of head - brow; 2-part fracture of surgical neck of humerus - left. Bed requested for Telemetry/MedSurg (Inpatient). Status is Inpatient Admission. Condition is Fair. Problem is new. Symptoms have improved. UTI on Admission? No. hilaria 08:47 08:43 01/18/2019 08:23 Hospitalization Ordered by Kumar Resendez MD for Inpatient hilaria Admission. Preliminary diagnosis is Fall due to bumping against object; Weakness; Laceration without foreign body of unspecified part of head - brow; 2-part fracture of surgical neck of humerus - left. Bed requested for Telemetry/MedSurg (Inpatient). Status is Inpatient Admission. Condition is Fair. Problem is new. Symptoms have improved. UTI on Admission? No. eb 10:16 08:47 01/18/2019 08:23 Hospitalization Ordered by Kumar Resendez MD for Inpatient hilaria Admission. Preliminary diagnosis is Fall due to bumping against object; Weakness; Laceration without foreign body of unspecified part of head - brow; 2-part fracture of surgical neck of humerus - left; Fracture of thoracic vertebra - T 8 COMPRESSION FRACE, AGE INDETERMINANT; Cystitis. Bed requested for Telemetry/MedSurg (Inpatient). Status is Inpatient Admission. Condition is Fair. Problem is new. Symptoms have improved. UTI on Admission? Yes. hilaria 12:33 10:19 01/18/2019 10:19 Transfer ordered to [facility]. sv Diagnosis is Fall due to bumping against object; Pulmonary fibrosis, unspecified; 2-part fracture of surgical neck of humerus - left; Fracture of thoracic vertebra - T8, 50 % compression fracture; Laceration without foreign body of other part of head - left brow, facial contusion. Reason for transfer: Higher level of care. Accepting physician is to , trauma. Condition is Fair. Problem is new. Symptoms are unchanged. hilaria
--- NOTE | 2019-01-18 08:30 | RAD REPORT ---
EXAM DESCRIPTION: CT - Head C Spine Cap Wo Con - 01/18/2019 8:13 am CLINICAL HISTORY: Trauma, fall, head, neck, chest and abdomen pain COMPARISON: CT abdomen and pelvis February 2017, CT December 2017 TECHNIQUE: Axial [address] head images were obtained. Axial [address] cervical spine images were obtain ed with sagittal and coronal reconstruction images reviewed. Axial 5 mm images of the chest, abdomen and pelvis were obtained. All CT scans are performed using dose optimization technique as appropriate and may include automated exposure control or mA/KV adjustment according to patient size. FINDINGS: No intracranial hemorrhage, mass or edema. No midline shift or abnormal fluid collection. Prominent atrophy and chronic ischemic changes are present. Ventricles are in proportion to the amoun t of volume loss. Dense arterial tree calcifications are present. No skull fracture is present. Masto id air cells are clear. Facial bones, sinuses and orbits are separately detailed. Cervical bodies are normal in height. No fracture or acute bone process identified. Patient has very advanced degenerative change at the dens anterior arch C1 level. There is mild anterior subluxation o f C5 on C6 and C7 on T1. There are prominent facet degenerative changes at these levels that would ex plain the subluxation abnormalities. No pathologic bone process.Disc space narrowing is seen througho ut the cervical spine.No prevertebral soft tissue thickening or paraspinal mass.Central canal detail is inherently limited on CT imaging.Right bony foraminal encroachment at C3-4 and on the left at C4-5 . Bilateral foraminal encroachment at C5-6 on the left at C6-7. CT chest shows no pneumothorax, pulmonary contusion or pleural fluid collection. No mediastinal mas s or hematoma. Vascular assessment is limited in the absence of contrast. Valve and Coronary artery c alcifications are present. No pericardial effusion. No chest will mass or abnormal axillary finding. No displaced rib fracture or other significant bony finding. Proximal left humerus fractures present seen as transverse surgical neck fracture an oblique fracture through the greater tuberosity. Left h umeral head is not dislocated. Left clavicle and AC joint are intact. Prominent thoracic spine degene rative changes are present without pathologic component. Approximately 50% wedge compression T8. Bone s are osteopenic. Compression fracture is new from December 2017. An acute fracture is not excluded. CT abdomen and pelvis show no injury to solid abdominal viscera. Gallbladder is absent. No biliary tr ee dilatation. No bowel injury or significant finding. No free air, free fluid or abnormal stranding. No mass or bulky lymphadenopathy. Very small periumbilical fat only hernia is seen. Stool volume is moderately large distending the rectum. No appendicitis. Prominent diverticulosis is present. No frac ture of the bony pelvis or proximal femurs. Lower lumbar degenerative changes are present with degene rative right convex scoliosis. No urinary bladder abnormality. No significant bony finding. IMPRESSION: Prominent atrophy and chronic ischemic changes are present with no acute intracranial fi nding. Facial bones, orbits and sinuses are separately detailed. Advanced cervical spine degenerative change with no acute finding. Central canal detail is inherently limited in the spine. No pneumothorax, pulmonary contusion or acute finding to the thorax. Proximal left humerus fracture is separately detailed. Patient has approximately 50% T8 compression fracture possibly acute. Correlation is needed for any m idthoracic pain symptoms. No significant encroachment into the central canal. No acute finding in the abdomen or pelvis.
--- NOTE | 2019-01-18 08:31 | RAD REPORT ---
EXAM DESCRIPTION: RAD - Hip Left 2 View - 01/18/2019 8:26 am CLINICAL HISTORY: Fall, left hip pain COMPARISON: None. FINDINGS: AP and frogleg views of the left hip were obtained. There is no fracture or dislocation. N o AVN or focal femoral head abnormality. Acetabulum degenerative changes are mild. No soft tissue abnormality. IMPRESSION: Negative left hip examination for acute or significant findings.
--- NOTE | 2019-01-18 08:31 | RAD REPORT ---
EXAM DESCRIPTION: RAD - Pelvis - 01/18/2019 8:25 am CLINICAL HISTORY: Fall, trauma COMPARISON: None. TECHNIQUE: AP imaging of the pelvis was obtained. FINDINGS: No fracture of the bony pelvis. Prominent lower lumbar degenerative changes are present on ly partially imaged. No fracture or acute finding of either proximal femur or hip joint. IMPRESSION: No fracture or acute finding.
--- NOTE | 2019-01-18 08:32 | RAD REPORT ---
EXAM DESCRIPTION: RAD - Chest Single View - 01/18/2019 8:26 am CLINICAL HISTORY: Fall, chest pain COMPARISON: December 2007 TECHNIQUE: AP portable chest image was obtained 0823 hour . FINDINGS: Lungs are fibrotic. No pulmonary contusion or acute lung parenchymal process seen. Heart a nd vasculature are normal. No measurable pleural effusion and no pneumothorax. Proximal left humerus fracture is present separately detailed. No acute aortic findings suspected. IMPRESSION: Fibrotic lung pattern with no pulmonary contusion, pneumothorax or significant chest fin ding.
--- NOTE | 2019-01-18 08:34 | RAD REPORT ---
EXAM DESCRIPTION: CT - Facial Bones W/ Mpr - 01/18/2019 8:14 am CLINICAL HISTORY: Fall, left-sided facial trauma COMPARISON: June 2014 TECHNIQUE: Axial 2 millimeter thick images of the facial bones were obtained with sagittal and coron al reconstruction imaging. All CT scans are performed using dose optimization technique as appropriate and may include automated exposure control or mA/KV adjustment according to patient size. FINDINGS: Partially imaged cervical spine shows significant degenerative change. This is further det andria on separate report. Mastoid air cells are clear. No skull base fracture. No fracture of the man dible. Condyles are normally positioned. No air-fluid level or mucosal thickening in the paranasal si nuses. No globe or orbital content abnormality seen. There is moderately prominent contusion and brigida a change in the soft tissues overlying the left orbit and left zygoma. No foreign body in the soft ti ssues. No facial bone fracture. Patient has normal variant hyperostosis frontalis interna. IMPRESSION: Moderate contusion and edema changes in the soft tissues overlying the left orbit, left maxilla and left zygoma. No facial bone fracture.
[2019-01-18 08:58] LABS: Urine Blood NEGATIVE (NEG); Urine Glucose NEGATIVE (NEG); Urine Protein NEGATIVE (NEG); Urine pH 7.5 (5.0-7.0)
[2019-01-18] MEDS ORDERED: CEFTRIAXONE/SWI 1gm 1 GM/10 ML SYR ONE (09:02)
[2019-01-18 13:03] VITALS: TEMP 97.7
[2019-01-18 13:07] VITALS: BP 153/85; O2SAT 95
--- NOTE | 2019-01-18 18:16 | CON ---
This is a consult in ER as a trauma. History Of Present Illness: This is a case of an 88-year-old patient brought by EMS after complainin g of a fall and laceration to the head this morning. Apparently based on the story, the patient fell in upright position while she was walking and tripped . This patient was brought in initially to the ER by EMS. Initial workup was done by the ER physici yonathan with repair of a laceration of the face. During the workup, the patient was found to have a spina l fracture, humerus fracture. They were going to admit the patient to the floor but the hospitalist called me before admission to see if I can evaluate the patient from a trauma standpoint and I believ e it is the proper thing to do in this situation. When I went there, I basically talked to the famil y, the patient cannot give most of the information. It is hard for her to verbalize properly and the patient's family believe this is a chronic issue. There are some stitches on the left periorbital r egion with the eye completely shut down the orbit from swelling and ecchymoses over the region. The patient has also bruises on the left maxillary area and also the patient is laying on the left should er region. There are some bruises also over the anterior aspect of the left shoulder, left upper arm with decreased range of motion. The patient right now on a sling. Apparently the patient also has some blood thinner chronically. Allergies: INCLUDE BACTRIM, DEMEROL, LEVAQUIN, SULFA, FOSAMAX. Medications: Reviewed, including gabapentin, Combigan, Diltiazem, citalopram, Xarelto. Past Medical History: Includes kidney stones, neuropathy, TIAs, DVT, gastric reflux, diverticulitis and depression. Review of Systems: Review of systems cannot be obtained. I obtained much of this information from the family. Physical Examination: General: The patient is awake and alert. She responds to commands although she cannot tell me the w hole story. HEENT: Pupils are equal and reactive, although the left eyelid already shut down so we have to open the eyelids to be able to see the pupils. This is by swelling and an ecchymosis. The patient has a laceration in the left periorbital region already sutured by the ER physician. Bruises over the face mostly over the mandible area. Tongue is midline. No otorrhea. No rhinorrhea. Neck: No step-off. No pinpoint tenderness. Supple. No JVD. Chest: Bilateral breath sounds present. Ecchymosis over the left upper chest region near the should er. Heart: S1, S2. Abdomen: Soft and depressible. Nontender. Nondistended. Bowel sounds positive. Rectal: Deferred. Pelvis: Deferred. Extremities: Over the left arm, the patient has sling present. Apparently on x-ray already they fou nd humerus fracture in that region. So I did not want to mobilize that area. I note she has radial pulses and the fingers had good sensation at this time. There is ecchymosis of the arm region, bicip ital area and shoulder region. No active bleeding outside or lacerations. Back: No step-off. No pinpoint tenderness. Although an x-ray shows may have a T-spine fracture. Neuro: Cranial nerves 2 through 12 grossly within normal limits. Laboratory Data: Blood work shows WBC count of 7.2 with hemoglobin of 13.1, and platelets of 241. I NR is 1.8, PT 20.8. Chloride is 114, BUN is 25, total bilirubin of 0.6. Urine nitrate positive. CT of head, C-spine, chest and abdomen shows, interpreted by Dr. Kelsey as prominent atrophy and chron ic ischemic changes present with no acute intracranial findings. Facial bones, orbits and sinuses ar e examined on the CT and shows contusions and edema over the soft tissue of the left orbit and left m axilla and left zygoma. No facial bone fracture. Some cervical degenerative changes with no acute f indings. No pneumothorax, pulmonary contusion or acute findings in thorax. There is a proximal left humerus fracture. There is about 50% T8 compression fracture that he believes possibly is not acute . No significant encroachment of the central canal. No acute findings in abdomen or pelvis. Assessment: An 88-year-old patient with multiple trauma, ecchymosis, lacerations in the face, contus ions in the face, humerus fracture, contusions of shoulder, T8 fracture, on the blood thinners, hemat mickey of the periorbital region. I believe this patient should be in the trauma center, especially whe n we do not have specialty to address the acute findings in the T8. She might not have all neurologi maria de jesus findings right now but does not mean she does not have in the future or she may develop them. so, I believe the patient should not be admitted to this hospital. The patient should immediately cance l this admission and sent the patient to a trauma center. I discussed the case with Dr. Resendez who di d agree with that. TORY/JERSON Voice ID: [id number] Report ID: [id number]
== END 2019-01-18 12:33 | disposition short-term general hospital (02) ==
LOC: ER 07:33
PROC: 0JQ10ZZ Repair Face Subcutaneous Tissue and Fascia, Open Approach (ICD-10-PCS; principal; 2019-01-18)
DX: S01.112A Laceration without foreign body of left eyelid and periocular area, initial encounter (principal); S42.222A 2-part displaced fracture of surgical neck of left humerus, initial encounter for closed fracture; S22.069A Unspecified fracture of T7-T8 vertebra, initial encounter for closed fracture; S00.83XA Contusion of other part of head, initial encounter; J84.10 Pulmonary fibrosis, unspecified; W18.00XA Striking against unspecified object with subsequent fall, initial encounter; Y93.01 Activity, walking, marching and hiking; Y92.9 Unspecified place or not applicable; Z23 Encounter for immunization; Z88.1 Allergy status to other antibiotic agents; Z88.2 Allergy status to sulfonamides; Z88.3 Allergy status to other anti-infective agents; Z88.5 Allergy status to narcotic agent; Z88.8 Allergy status to other drugs, medicaments and biological substances; Z79.01 Long term (current) use of anticoagulants; Z86.718 Personal history of other venous thrombosis and embolism; I10 Essential (primary) hypertension; F32.9 Major depressive disorder, single episode, unspecified; E78.00 Pure hypercholesterolemia, unspecified
CPT/HCPCS: 96361; 87088; 85025; 87086; 80048; 36415; 86900; 83735; 86850; 85610; 86901; 80076; 87077; 87186; 81003; 84484; 83880; 70450; 71250; 72125; 70486; 76377; 71045; 72170; 73502; 73030; 51702; 96375; 96374; 99285; 12011; J3010; J0696; J7030 ×2; J2405; 90714; J0690